=== PATIENT | female | born 1950 | race Caucasian/White ===

== ENCOUNTER → 2018-01-25 | Outpatient (CLI) | payer MEDICARE ==
[~2018-01-25] MED LIST: REGADENOSON 0.4 MG/5 ML SYRINGE IV ONE
--- NOTE | 2018-01-25 10:46 | NM ---
EXAMINATION TYPE: NM stress lexiscan cardiolite DATE OF EXAM: 01/25/2018 COMPARISON: NONE HISTORY: Chest pain, palpitations TECHNIQUE: After the intravenous administration of 10.22 mCi Tc 99m Sestamibi - Cardiolite resting S PECT images acquired 45 minutes post injection. The patient received 0.4mg Lexiscan, 25.5 mCi Tc 99m Sestamibi - Stress images obtained [address] injection FINDINGS: Review of stress and rest SPECT images demonstrates no distinct perfusion abnormality. Gated analysi s shows normal wall motion with an estimated left ventricular ejection fraction of 76 %. IMPRESSION: No scintigraphic evidence for pharmacologically induced reversible ischemia. Consider echocardiograph ic correlation for elevated ejection fraction.
--- NOTE | 2018-01-25 12:34 | ECHOF ---
Referral Reason:R07.89 chest pain R00.2palpations MEASUREMENTS -------- HEIGHT: 160.0 cm WEIGHT: 81.6 kg BP: 188/72 RVIDd: 2.8 cm (< 3.3) IVSd: 1.2 cm (0.6 - 1.1) LVIDd: 3.6 cm (3.9 - 5.3) LVPWd: 1.4 cm (0.6 - 1.1) IVSs: 1.6 cm LVIDs: 3.0 cm LVPWs: 1.5 cm Ao Diam: 3.1 cm (2.0 - 3.7) AV Cusp: 2.3 cm (1.5 - 2.6) LA Diam: 3.1 cm (2.7 - 3.8) MV EXCURSION: 16.659 mm (> 18.000) MV EF SLOPE: 71 mm/s (70 - 150) EPSS: 0.3 cm MV E Gerardo: 0.51 m/s MV DecT: 228 ms MV A Gerardo: 0.80 m/s MV E/A Ratio: 0.64 RAP: 5.00 mmHg RVSP: 16.77 mmHg FINDINGS -------- Sinus rhythm. This was a technically adequate study. The left ventricular size is normal. There is moderate concentric left ventricular hypertrophy. O verall left ventricular systolic function is low-normal with, an EF between 50 - 55 %. The right ventricle is normal in size. The left atrial size is normal. The right atrial size is normal. The aortic valve is trileaflet, and appears structurally normal. No aortic stenosis or regurgitation. Mild mitral regurgitation is present. Mild tricuspid regurgitation present. There is no evidence of pulmonary hypertension. The right v entricular systolic pressure, as measured by Doppler, is 16.77mmHg. There is no pulmonic regurgitation present. The aortic root size is normal. Echo free space represents a pericardial fat pad. CONCLUSIONS -------- 1. The left ventricular size is normal. 2. There is moderate concentric left ventricular hypertrophy. 3. Overall left ventricular systolic function is low-normal with, an EF between 50 - 55 %. 4. The right ventricle is normal in size. 5. The left atrial size is normal. 6. The right atrial size is normal. 7. The aortic valve is trileaflet, and appears structurally normal. No aortic stenosis or regurgitati on. 8. Mild mitral regurgitation is present. 9. Mild tricuspid regurgitation present. 10. There is no evidence of pulmonary hypertension. 11. The right ventricular systolic pressure, as measured by Doppler, is 16.77mmHg. 12. There is no pulmonic regurgitation present. 13. The aortic root size is normal. 14. Echo free space represents a pericardial fat pad. LOCKER ROOM SUPERVISOR: Malu Lee RDCS
--- NOTE | 2018-01-25 14:06 | EST ---
EXERCISE STRESS AGE: 67 SEX: F HT: 5'3" WT: 180 PROTOCOL: Lexiscan Cardiolite Stress Test HEART RATE REST: 86 BLOOD PRESSURE REST: 108/72 MAXIMUM HEART RATE ACHIEVED: 97 MAXIMUM BLOOD PRESSURE: 121/63 85% MPHR: 128 100% MPHR: 151 INDICATIONS: Chest pain and palpitations. CLINICAL INFORMATION: STRESS DATA: Pretesting physical examination showed a heart rate of 86, pressure is 108/72 mmHg. Baseline EKG showed sinus mechanism; 0.4 mg of Lexiscan was given over 15 seconds per protocol. Max heart rate was 97 beats per minute, maximum blood pressure was 121/63 mmHg. Clinically, the patient did not have any symptoms of chest pain or discomfort. The EKG did not show any significant ST or T-wave abnormalities concerning for ischemia. CONCLUSION: 1. Nondiagnostic electrocardiogram stress testing in response to Lexiscan. 2. Please follow up on the Cardiolite portion on a separate report from the Radiology Department. MMODL / IJN: [id number] /
== END | disposition home or self-care (01) ==
LOC: RADNMMAIN 07:34
PROVIDERS: ATTEND Family Medicine
DX: I08.1 Rheumatic disorders of both mitral and tricuspid valves (principal); R07.89 Other chest pain; Z88.2 Allergy status to sulfonamides; Z91.048 Other nonmedicinal substance allergy status
CPT/HCPCS: 93017; 93306; 78452; A9500; J2785

== ENCOUNTER 2018-02-02 11:24 | Day surgery (SDC) | payer MEDICARE ==
[2018-01-26 11:12] VITALS: BMI 31.4
[~2018-02-02 11:24] MED LIST changes: +LACTATED RINGERS 1,000 ML IV SCH; -REGADENOSON 0.4 MG/5 ML SYRINGE IV ONE
[2018-02-02 11:49] VITALS: TEMP 98.1
[2018-02-02] MEDS ORDERED: LACTATED RINGERS 1,000 ML IV ONE (11:49)
[2018-02-02] MEDS ORDERED: LIDOCAINE 1% 20 ML VIAL (10MG/ML) FOR IV START INTRADERMA ONE (11:49)
[2018-02-02] MEDS ORDERED: LIDOCAINE 1% INJ 10MG/ML (20 ML MDV) ONE (12:10)
[2018-02-02] MEDS ORDERED: PROPOFOL 10 MG/ML 20 ML VIAL IV ONE (12:10)
--- NOTE | 2018-02-02 12:14 | P.GSHP ---
History of Present Illness H&P Date: 02/02/18 Chief Complaint: Screening colonoscopy Is a 67-year-old female who presents today for screening colonoscopy. She denies a significant GI or last colonoscopy was 7 years ago. Past Medical History Past Medical History: Asthma, Hypertension, Seizure Disorder Additional Past Medical History / Comment(s): doesn't take meds for high BP, past hx. of seizures-last 6 yrs. ago-no further tx. for History of Any Multi-Drug Resistant Organisms: None Reported Past Surgical History: Cholecystectomy, Hernia Repair, Hysterectomy, Joint Replacement, Tonsillectomy, Tubal Ligation Additional Past Surgical History / Comment(s): brain surg. x2-cavernous angioma , gamma knife surg. for AVM, hernia repair x3, right knee replaced Past Anesthesia/Blood Transfusion Reactions: No Reported Reaction Smoking Status: Never smoker - Past Family History Mother Family Medical History: No Reported History Medications and Allergies Home Medications Medication Instructions Recorded Confirmed Type DULoxetine HCL [Cymbalta] 60 mg PO HS 01/26/18 01/26/18 History Glycopyrrolate [Robinul] 1 mg PO ONCE PRN 01/26/18 01/26/18 History Suvorexant [Belsomra] 10 mg PO HS PRN 01/26/18 01/26/18 History Ziprasidone [Geodon] 60 mg PO HS 01/26/18 01/26/18 History diphenhydrAMINE [Benadryl] 25 mg PO BID PRN 01/26/18 01/26/18 History Allergies Allergy/AdvReac Type Severity Reaction Status Date / Time Sulfa (Sulfonamide Allergy Rash/Hives Unverified 01/26/18 10:55 Antibiotics) Surgical - Exam Vital Signs Temp Pulse Resp BP Pulse Ox 98.1 F 113 H 18 159/86 94 L 02/02/18 11:48 02/02/18 11:48 02/02/18 11:48 02/02/18 11:48 02/02/18 11:48 - General well developed, no distress - Eyes PERRL - ENT normal pinna - Neck no masses - Respiratory normal expansion - Cardiovascular Rhythm: regular - Abdomen Abdomen: soft, non tender Assessment and Plan Assessment: Perform screening colonoscopy.
--- NOTE | 2018-02-02 12:28 | P.OP ---
Date of Procedure: 02/02/18 Preoperative Diagnosis: Screening colonoscopy Postoperative Diagnosis: Cecal polyp Procedure(s) Performed: Colonoscopy Anesthesia: MAC Surgeon: Rinku Ruiz Pathology: other (Cecal polyp) Condition: stable Disposition: PACU Description of Procedure: Patient's placed on the endoscopy table in the lateral position. She received IV sedation. Digital rectal exam was performed which revealed no ebonized. The flexible colonoscope was then placed patient anus and passed throughout the entire colon. The ileocecal valve was visualized. In the cecum there is a small sessile polyp was removed with a snare. The remainder of the ascending colon, transverse colon and descending colon appeared normal. The sigmoid colon and rectum appeared normal. Scope was withdrawn for patient.
[2018-02-02 12:36] VITALS: RESP 16
[2018-02-02 12:53] VITALS: BP 134/78; PULSE 80
== END 2018-02-02 13:00 | disposition home or self-care (01) ==
LOC: ORWHC2ENDO 11:24
PROVIDERS: ATTEND Surgery
DX: Z12.11 Encounter for screening for malignant neoplasm of colon (principal); D12.0 Benign neoplasm of cecum; J45.909 Unspecified asthma, uncomplicated; I10 Essential (primary) hypertension; G40.909 Epilepsy, unspecified, not intractable, without status epilepticus; Z79.899 Other long term (current) drug therapy; Z88.2 Allergy status to sulfonamides; Z90.49 Acquired absence of other specified parts of digestive tract; Z90.710 Acquired absence of both cervix and uterus; Z96.651 Presence of right artificial knee joint; Z98.51 Tubal ligation status
CPT/HCPCS: 88305; 45385; J2001; J2704

== ENCOUNTER → 2019-03-18 | Outpatient (CLI) | payer MEDICARE ==
--- NOTE | 2019-03-22 11:34 | MM ---
Reason for exam: screening (asymptomatic). Last mammogram was performed 4 years and 2 months ago. History: Patient is postmenopausal. Family history of breast cancer in 2 aunts. Physical Findings: A clinical breast exam by your physician is recommended on an annual basis and results should be correlated with mammographic findings. MG 3D Screening Mammo W/Cad Bilateral CC and MLO view(s) were taken. Prior study comparison: January 11, 2015, bilateral MG screening mammo w CAD. September 14, 2006, bilateral screening mammogram w/CAD. There are scattered fibroglandular densities. There is no discrete abnormality. No significant changes when compared with prior studies. ASSESSMENT: Negative, BI-RAD 1 RECOMMENDATION: Routine screening mammogram of both breasts in 1 year.
== END | disposition home or self-care (01) ==
LOC: RADMAMWWP 16:22
PROVIDERS: ATTEND Family Medicine
DX: Z12.31 Encounter for screening mammogram for malignant neoplasm of breast (principal)
CPT/HCPCS: 77063; 77067

== ENCOUNTER 2019-08-29 16:23 | Emergency (ER) | payer OTHER, MEDICARE ==
[2019-08-29 16:29] VITALS: RESP 18; TEMP 98.2
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
--- NOTE | 2019-08-29 17:38 | XR ---
EXAMINATION TYPE: XR chest 2V DATE OF EXAM: 08/29/2019 COMPARISON: NONE HISTORY: Chest pain TECHNIQUE: 2 views FINDINGS: Heart and mediastinum are normal. Lungs are clear. Diaphragm is normal. Bony thorax is inta ct. Pulmonary vascularity is normal. IMPRESSION: Normal chest.
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
[2019-08-29 17:58] LABS: Basophils # (A) 0.1 k/uL (0-0.2); Basophils % (A) 1 %; Eosinophils # (A) 0.3 k/uL (0-0.7); Eosinophils % (A) 3 %; HCT 46.2 % (34.0-46.0); HGB 14.9 gm/dL (11.4-16.0); Lymphocytes # (A) 2.9 k/uL (1.0-4.8); Lymphocytes % (A) 30 %; MCH 28.4 pg (25.0-35.0); MCHC 32.2 g/dL (31.0-37.0); MCV 88.1 fL (80.0-100.0); Mean Platelet Volume 6.3; Monocytes # (A) 0.5 k/uL (0-1.0); Monocytes % (A) 5 %; Neutrophils # (A) 5.7 k/uL (1.3-7.7); Neutrophils % (A) 60 %; Platelet Count 285 k/uL (150-450); RBC 5.24 m/uL (3.80-5.40); WBC 9.4 k/uL (3.8-10.6)
[2019-08-29 18:06] VITALS: BP 136/94; PULSE 81
[2019-08-29 18:06] LABS: Albumin 4.1 g/dL (3.5-5.0); Calcium 9.8 mg/dL (8.4-10.2); Potassium 4.2 mmol/L (3.5-5.1); Total Bilirubin 0.5 mg/dL (0.2-1.3); Total Protein 6.6 g/dL (6.3-8.2)
[2019-08-29 18:13] LABS: INR 0.9 (<1.2); Prothrombin Time 9.8 sec (9.0-12.0)
[2019-08-29 18:14] LABS: Partial Thromboplastin Time 21.1 sec (22.0-30.0)
[2019-08-29] MEDS ORDERED: ACET/COD 300 MG/30 MG STARTER PACK 6 TAB BTL PO STA (18:57)
== END 2019-08-29 19:00 | disposition home or self-care (01) ==
LOC: EC 16:23
DX: M51.35 Other intervertebral disc degeneration, thoracolumbar region (principal); F32.9 Major depressive disorder, single episode, unspecified; I10 Essential (primary) hypertension; Z79.899 Other long term (current) drug therapy; Z88.2 Allergy status to sulfonamides; V03.99XA Pedestrian with other conveyance injured in collision with car, pick-up truck or van, unspecified whether traffic or nontraffic accident, initial encounter; Y92.488 Other paved roadways as the place of occurrence of the external cause; Y93.01 Activity, walking, marching and hiking
CPT/HCPCS: 36415; 71046; 72128; 72131; 80053; 85025; 85610; 85730; 99284

== ENCOUNTER → 2019-09-26 | Outpatient (CLI) | payer MEDICARE ==
--- NOTE | 2019-09-27 07:25 | US ---
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 Patient states having a test that showed goiter TECHNIQUE: Multiple sonographic images of the thyroid gland are obtained. FINDINGS: GLAND SIZE: Right Lobe: 4.7 x 1.5 x 1.4 cm Overall Parenchyma: heterogenous Left Lobe: 8.9 x 6.0 x 3.9 cm Overall Parenchyma: heterogeneous Isthmus Thickness: 0.7 cm NODULES RIGHT: # of nodules measured on right: 1. 0.8 x 0.8 x 0.8 cm heterogeneous nodule at the mid pole with well-defined margins; present with c alcifications. This nodule shows intranodular vascularity. Prior size: No prior LEFT: # of nodules measured on left: 0 Goiter visualized in left lobe with cystic component = 3.7 x 2.8 x 2.3 cm ISTHMUS: # of nodules measured in the isthmus: 0 Bilateral neck scanned. Lymph node visualized in the right lateral neck = 1.4 x 0.6 x 0.6 cm, promine nt but nonenlarged by size criteria IMPRESSION: 1. Goitrous enlargement of the left lobe measuring up to 8.9 x 6.0 x 3.9 cm. There is a cystic compon ent within measuring up to 3.7 cm. Unable to identify a discrete nodule separate from the left lobe g landular parenchyma. Review of the patient's 08/29/[address] shows mass effect on the air way with rightward deviation. 2. Calcified 8 mm nodule at the right midpole.
== END | disposition home or self-care (01) ==
LOC: RADUSWWP 16:45
PROVIDERS: ATTEND Family Medicine
DX: E04.1 Nontoxic single thyroid nodule (principal); E04.9 Nontoxic goiter, unspecified
CPT/HCPCS: 76536

== ENCOUNTER 2019-10-13 12:36 | Emergency (ER) | payer MEDICARE ==
[2019-10-13 12:46] VITALS: BP 137/87; PULSE 91; RESP 20; TEMP 98.8
--- NOTE | 2019-10-13 13:06 | ED ---
General Adult HPI - General Chief complaint: Recheck/Abnormal Lab/Rx Stated complaint: Shortness of breath, abn EKG in office Time Seen by Provider: 10/13/19 12:58 Source: patient, RN notes reviewed, old records reviewed Mode of arrival: wheelchair Limitations: no limitations - History of Present Illness Initial comments: 69-year-old female presenting from her primary care physician's office with an abnormal EKG. She was seeing his physician for the first time, she had an EKG obtained secondary to 3 months of dyspnea. Patient states that she has not had any chest pain today or over the past 3 months. She has no known history of coronary artery disease. No history of DVT or PE. She denies cough. She denies lower extremity pain or swelling. She denies fever. No URI symptoms. Dyspnea has been constant and unchanged over the past 3 months. - Related Data Home Medications Medication Instructions Recorded Confirmed DULoxetine HCL [Cymbalta] 60 mg PO HS 01/26/18 01/26/18 Glycopyrrolate [Robinul] 1 mg PO ONCE PRN 01/26/18 01/26/18 Suvorexant [Belsomra] 10 mg PO HS PRN 01/26/18 01/26/18 Ziprasidone [Geodon] 60 mg PO HS 01/26/18 01/26/18 diphenhydrAMINE [Benadryl] 25 mg PO BID PRN 01/26/18 01/26/18 Allergies Allergy/AdvReac Type Severity Reaction Status Date / Time Sulfa (Sulfonamide Allergy Rash/Hives Verified 10/13/19 12:46 Antibiotics) Review of Systems ROS Statement: Those systems with pertinent positive or pertinent negative responses have been documented in the HPI. ROS Other: All systems not noted in ROS Statement are negative. Past Medical History Past Medical History: Asthma, Hypertension, Seizure Disorder Additional Past Medical History / Comment(s): doesn't take meds for high BP, past hx. of seizures-last 6 yrs. ago-no further tx. for History of Any Multi-Drug Resistant Organisms: None Reported Past Surgical History: Cholecystectomy, Hernia Repair, Hysterectomy, Joint Replacement, Tonsillectomy, Tubal Ligation Additional Past Surgical History / Comment(s): brain surg. x2-cavernous angioma, gamma knife surg. for AVM, hernia repair x3, right knee replaced Past Anesthesia/Blood Transfusion Reactions: No Reported Reaction Past Psychological History: Depression Smoking Status: Never smoker Past Alcohol Use History: None Reported Past Drug Use History: None Reported - Past Family History Mother Family Medical History: No Reported History General Exam Limitations: no limitations General appearance: alert, in no apparent distress Head exam: Present: atraumatic, normocephalic Eye exam: Present: normal appearance, PERRL ENT exam: Present: normal exam Neck exam: Present: normal inspection. Absent: tenderness, meningismus Respiratory exam: Present: normal lung sounds bilaterally. Absent: respiratory distress, wheezes, rales, rhonchi, stridor, decreased breath sounds Cardiovascular Exam: Present: regular rate, normal rhythm GI/Abdominal exam: Present: soft. Absent: distended, tenderness, guarding, rebound Extremities exam: Present: normal inspection, normal capillary refill. Absent: pedal edema, calf tenderness Neurological exam: Present: alert, oriented X3, CN II-XII intact. Absent: motor sensory deficit Psychiatric exam: Present: normal affect, normal mood Skin exam: Present: warm, dry, intact. Absent: cyanosis, diaphoretic Course Vital Signs 10/13/19 12:45 Temperature 98.8 F Pulse Rate 91 Respiratory 20 Rate Blood Pressure 137/87 O2 Sat by Pulse 97 Oximetry EKG Findings - EKG Comments: EKG Findings:: EKG: Normal sinus rhythm, T-wave abnormality in the lateral precordial leads, the V4,[address] segment elevation, rate of 86, WI in terval 148, QRS duration 74, QTC 380 Medical Decision Making - Medical Decision Making 69-year-old female presenting for dyspnea. This is been ongoing for weeks. She was seen by her primary care physician for the first time today and had an EKG with T-wave inversion this is consistent with EKG performed in the emergency department today. She has stable vitals, no chest pain. No lower extremity edema. Chest x-ray is clear with no focal pneumonia, no pulmonary edema, no pneumothorax, there is a soft tissue mass consistent with unknown later. Patient has an appointment later this month for evaluation of this goiter. She has a normal CBC with mildly elevated hemoglobin at 16. She has normal white blood cell count, normal electrolytes, she has a negative d-dimer, negative troponin. I did discuss case with Dr. Cha who had sent the patient. He will resume care of this patient on an outpatient basis. - Lab Data Result diagrams: 10/13/19 13:00 10/13/19 13:00 Lab Results 10/13/19 10/13/19 10/13/19 Range/Units 13:00 13:00 13:00 WBC 10.4 (3.8-10.6) k/uL RBC 5.66 H (3.80-5.40) m/uL Hgb 16.4 H (11.4-16.0) gm/dL Hct 50.7 H (34.0-46.0) % MCV 89.5 (80.0-100.0) fL MCH 29.0 (25.0-35.0) pg MCHC 32.4 (31.0-37.0) g/dL RDW 13.7 (11.5-15.5) % Plt Count 266 (150-450) k/uL Neutrophils % 62 % Lymphocytes % 30 % Monocytes % 4 % Eosinophils % 2 % Basophils % 1 % Neutrophils # 6.5 (1.3-7.7) k/uL Lymphocytes # 3.1 (1.0-4.8) k/uL Monocytes # 0.4 (0-1.0) k/uL Eosinophils # 0.2 (0-0.7) k/uL Basophils # 0.1 (0-0.2) k/uL PT 10.2 (9.0-12.0) sec INR 1.0 (<1.2) APTT 22.7 (22.0-30.0) sec D-Dimer 0.29 (<0.60) mg/L FEU Sodium 140 (137-145) mmol/L Potassium 5.2 H (3.5-5.1) mmol/L Chloride 108 H (98-107) mmol/L Carbon Dioxide 20 L (22-30) mmol/L Anion Gap 12 mmol/L BUN 12 (7-17) mg/dL Creatinine 0.84 (0.52-1.04) mg/dL Est GFR (CKD-EPI)AfAm 81 (>60 ml/min/1.73 sqM) Est GFR (CKD-EPI)NonAf 70 (>60 ml/min/1.73 sqM) Glucose 121 H (74-99) mg/dL Calcium 10.2 (8.4-10.2) mg/dL Magnesium 2.0 (1.6-2.3) mg/dL Total Bilirubin 0.6 (0.2-1.3) mg/dL AST 29 (14-36) U/L ALT 17 (4-34) U/L Alkaline Phosphatase 114 (38-126) U/L Troponin I (0.000-0.034) ng/mL NT-Pro-B Natriuret Pep pg/mL Total Protein 7.3 (6.3-8.2) g/dL Albumin 4.7 (3.5-5.0) g/dL 10/13/19 10/13/19 Range/Units 13:00 13:00 WBC (3.8-10.6) k/uL RBC (3.80-5.40) m/uL Hgb (11.4-16.0) gm/dL Hct (34.0-46.0) % MCV (80.0-100.0) fL MCH (25.0-35.0) pg MCHC (31.0-37.0) g/dL RDW (11.5-15.5) % Plt Count (150-450) k/uL Neutrophils % % Lymphocytes % % Monocytes % % Eosinophils % % Basophils % % Neutrophils # (1.3-7.7) k/uL Lymphocytes # (1.0-4.8) k/uL Monocytes # (0-1.0) k/uL Eosinophils # (0-0.7) k/uL Basophils # (0-0.2) k/uL PT (9.0-12.0) sec INR (<1.2) APTT (22.0-30.0) sec D-Dimer (<0.60) mg/L FEU Sodium (137-145) mmol/L Potassium (3.5-5.1) mmol/L Chloride (98-107) mmol/L Carbon Dioxide (22-30) mmol/L Anion Gap mmol/L BUN (7-17) mg/dL Creatinine (0.52-1.04) mg/dL Est GFR (CKD-EPI)AfAm (>60 ml/min/1.73 sqM) Est GFR (CKD-EPI)NonAf (>60 ml/min/1.73 sqM) Glucose (74-99) mg/dL Calcium (8.4-10.2) mg/dL Magnesium (1.6-2.3) mg/dL Total Bilirubin (0.2-1.3) mg/dL AST (14-36) U/L ALT (4-34) U/L Alkaline Phosphatase (38-126) U/L Troponin I <0.012 (0.000-0.034) ng/mL NT-Pro-B Natriuret Pep 51 pg/mL Total Protein (6.3-8.2) g/dL Albumin (3.5-5.0) g/dL Disposition Clinical Impression: Dyspnea Disposition: HOME SELF-CARE Condition: Good Instructions (If sedation given, give patient instructions): Dyspnea (ED) Is patient prescribed a controlled substance at d/c from ED?: No Referrals: Hiram Cha [Primary Care Provider] - 1-2 days Time of Disposition: 14:35
[2019-10-13 13:21] LABS: Albumin 4.7 g/dL (3.5-5.0); Calcium 10.2 mg/dL (8.4-10.2); Total Bilirubin 0.6 mg/dL (0.2-1.3); Total Protein 7.3 g/dL (6.3-8.2)
--- NOTE | 2019-10-13 13:22 | XR ---
EXAMINATION TYPE: XR chest 2V DATE OF EXAM: 10/13/2019 COMPARISON: 08/29/2019 TECHNIQUE: PA and lateral views submitted. HISTORY: abnormal EKG FINDINGS: The lungs are clear and there is no pneumothorax, pleural effusion, or focal pneumonia. Soft tissue prominence in the upper mediastinum noted with a surgical clips overlying the left paratracheal latrell on and deviation of the airway. Heart size normal. IMPRESSION: 1. Upper mediastinal soft tissue mass most likely related to the thyroid. Previous ultrasound demonst rated the left lobe of thyroid measures nearly 9 cm. Correlate clinically.
[2019-10-13 13:25] LABS: Potassium 5.2 mmol/L (3.5-5.1)
[2019-10-13 13:27] LABS: Basophils # (A) 0.1 k/uL (0-0.2); Basophils % (A) 1 %; Eosinophils # (A) 0.2 k/uL (0-0.7); Eosinophils % (A) 2 %; HCT 50.7 % (34.0-46.0); HGB 16.4 gm/dL (11.4-16.0); Lymphocytes # (A) 3.1 k/uL (1.0-4.8); Lymphocytes % (A) 30 %; MCHC 32.4 g/dL (31.0-37.0); MCV 89.5 fL (80.0-100.0); Mean Platelet Volume 6.9; Monocytes # (A) 0.4 k/uL (0-1.0); Monocytes % (A) 4 %; Neutrophils # (A) 6.5 k/uL (1.3-7.7); Neutrophils % (A) 62 %; Platelet Count 266 k/uL (150-450); RBC 5.66 m/uL (3.80-5.40); RDW 13.7 % (11.5-15.5); WBC 10.4 k/uL (3.8-10.6)
[2019-10-13 13:34] LABS: D-Dimer 0.29 mg/L FEU (<0.60); Partial Thromboplastin Time 22.7 sec (22.0-30.0); Prothrombin Time 10.2 sec (9.0-12.0)
== END 2019-10-13 14:42 | disposition home or self-care (01) ==
LOC: EC 12:36
DX: R06.00 Dyspnea, unspecified (principal); R94.31 Abnormal electrocardiogram [ECG] [EKG]; F32.9 Major depressive disorder, single episode, unspecified; I10 Essential (primary) hypertension; J45.909 Unspecified asthma, uncomplicated; Z79.51 Long term (current) use of inhaled steroids; Z88.2 Allergy status to sulfonamides; Z79.899 Other long term (current) drug therapy; Z96.651 Presence of right artificial knee joint
CPT/HCPCS: 36415; 71046; 80053; 83735; 83880; 84484; 85025; 85379; 85610; 85730; 93005; 99285

== ENCOUNTER → 2019-10-28 | Outpatient (CLI) | payer MEDICARE ==
--- NOTE | 2019-10-28 20:33 | ECHOS ---
STRESS ECHOCARDIOGRAM PROCEDURE PERFORMED: Stress echocardiogram DATE OF SERVICE: October 27, 2019. INDICATION: Chest pain. STRESS DATA: Heart rate 108, pressure is 146/86 mmHg. Baseline EKG showed sinus mechanism. The patient exercised on the treadmill according to Andry protocol for a total of 3 minutes and achieved 4.4 METS. Max heart rate was 154 which is about 100% of maximum predicted heart rate. Maximum blood pressure was 170/88 mmHg. Clinically the patient did not have any symptoms of chest pain or chest discomfort and the EKG did not show any significant ST or T-wave abnormalities concerning for ischemia. Analysis and echocardiogram images from parasternal long axis view, parasternal short axis view, apical 4 chamber and apical 2 chamber were obtained as the baseline images at the peak of the heart rate as well as on recovery and the echocardiogram images showed good augmentation and left ventricular systolic function. CONCLUSION: 1. Poor exercise tolerance. 2. Normal EKG in response to exercise. 3. Normal echocardiogram in response to exercise. MMODL / IJN: [id number] /
== END | disposition home or self-care (01) ==
LOC: RADNMMAIN 09:48
PROVIDERS: ATTEND Family Medicine
DX: R07.89 Other chest pain (principal)
CPT/HCPCS: 93351

== ENCOUNTER → 2019-12-27 | Outpatient (CLI) | payer MEDICARE ==
[2019-12-27 20:06] LABS: African American GFR (CKD) 65.6 (60.0-200.0); Non-African American GFR(CKD) 56.6 (60.0-200.0)
== END | disposition home or self-care (01) ==
LOC: LABWHC1 10:30
PROVIDERS: ATTEND Internal Medicine Endocrinology, Diabetes & Metabolism
DX: E07.9 Disorder of thyroid, unspecified (principal); E04.2 Nontoxic multinodular goiter
CPT/HCPCS: 36415; 82565; 84520

== ENCOUNTER → 2019-12-28 | Outpatient (CLI) | payer MEDICARE ==
--- NOTE | 2019-12-28 09:29 | CT ---
EXAMINATION TYPE: CT soft tissue neck w con DATE OF EXAM: 12/28/2019 HISTORY: Thyroid mass and difficulty breathing. COMPARISON: Thyroid ultrasound September 26, [address] thoracic spine August 29, 2019 CT DLP: 444.1 mGycm. Automated Exposure Control for Dose Reduction was Utilized. TECHNIQUE: CT scan of the neck is performed with IV Contrast, patient injected with 100 mL of Isovue 300, axial images are obtained, coronal and sagittal reformatted images are reviewed. FINDINGS: Airway: Persistent heterogeneous markedly enlarged left thyroid lobe with substernal extension has lo w density irregular central component and measures roughly 8.2 cm long axis coronal image 33. Extensi on into Isthmus felt present. There is mass effect with right-sided tracheal deviation redemonstrated . Mass effect with right proximal esophageal deviation also noted. Right thyroid lobe is small to nor mal in size with subcentimeter calcification and tiny hypodense nodules Parotid/submandibular glands: No gross abnormality seen. Carotid/Vascular Structures: No significant abnormality is seen Osseous Structures: Postsurgical changes C6/C7 disc space level with satisfactory alignment . Scoliot ic curvature on coronal images. Other: Nasal septum deviated to right of midline. No definitive suspicious greater than 1 cm neck bacilio nopathy. IMPRESSION: Markedly enlarged left thyroid lobe with substernal extension felt to be related to domin ant mixed nodule. Neoplasm not excluded. Consider sampling and/or surgical referral due to large size and mass effect.
== END | disposition home or self-care (01) ==
LOC: RADCTMAIN 07:49
PROVIDERS: ATTEND Internal Medicine Endocrinology, Diabetes & Metabolism
DX: E04.9 Nontoxic goiter, unspecified (principal); E04.2 Nontoxic multinodular goiter; E07.9 Disorder of thyroid, unspecified
CPT/HCPCS: 70491; Q9967

== ENCOUNTER → 2020-06-22 | Outpatient (CLI) | payer MEDICARE ==
--- NOTE | 2020-06-22 16:30 | US ---
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 Left thyroidectomy Jan 2020 , patient on thyroid meds TECHNIQUE: Multiple sonographic images of the thyroid gland are obtained. FINDINGS: GLAND SIZE: Right Lobe: 3.4 x 1.4 x 1.8 cm Overall Parenchyma: heterogenous Left Lobe: Surgically absent Isthmus Thickness: Surgically absent NODULES RIGHT: # of nodules measured on right: multiple subcentimeter areas, measured largest nodule 1. 0.6 X 0.5 x 0.6 cm, calcified nodule, which is taller than wide, with smooth margins, with echog enic foci. Prior size: 0.8 x 0.8 x 0.8 cm LEFT: # of nodules measured on left: surgically absent ISTHMUS: # of nodules measured in the isthmus: surgically absent Hospitalist Nocturnist Physician notes: Bilateral neck scanned, no evidence of lymphadenopathy. IMPRESSION: 1. Multiple subcentimeter nodules in the right lobe, largest measures 6 mm and is calcified and not s ignificantly changed. 2. Status post left thyroidectomy.
== END | disposition home or self-care (01) ==
LOC: RADUSWWP 14:57
PROVIDERS: ATTEND Internal Medicine Endocrinology, Diabetes & Metabolism
DX: E04.2 Nontoxic multinodular goiter (principal); E89.0 Postprocedural hypothyroidism
CPT/HCPCS: 76536

== ENCOUNTER 2022-12-11 08:26 | Day surgery (SDC) | payer MEDICARE, OTHER ==
[~2022-12-11 08:26] MED LIST changes: +LIDOCAINE 1% (10MG/ML) FOR IV START INTRADERMA PRN; +ONDANSETRON 4 MG/2 ML VIAL IVP PRN
[2022-12-11 09:06] VITALS: TEMP 97
[2022-12-11] MEDS ORDERED: LIDOCAINE 2% INJ 20 MG/ML (2 ML VIAL) ONE (09:11)
[2022-12-11] MEDS ORDERED: PROPOFOL 10 MG/ML 20 ML VIAL IV ONE (09:11)
--- NOTE | 2022-12-11 09:21 | P.GSHP ---
History of Present Illness H&P Date: 12/11/22 Chief Complaint: colon polyp This is a 72-year-old female who presents today for colonoscopy. Patient has a previous history of colon polyps. polyps. Past Medical History Past Medical History: Hypertension, Seizure Disorder Additional Past Medical History / Comment(s): doesn't take meds for high BP, past hx. of seizures-last 6 yrs. ago-no further tx. for History of Any Multi-Drug Resistant Organisms: None Reported Past Surgical History: Cholecystectomy, Hernia Repair, Hysterectomy, Joint Replacement, Tonsillectomy, Tubal Ligation Additional Past Surgical History / Comment(s): brain surg. x2-cavernous angioma, gamma knife surg. for AVM, hernia repair x3, right knee replaced Past Anesthesia/Blood Transfusion Reactions: No Reported Reaction Past Psychological History: Depression Smoking Status: Never smoker Past Alcohol Use History: None Reported Past Drug Use History: None Reported - Past Family History Mother Family Medical History: No Reported History Medications and Allergies Home Medications Medication Instructions Recorded Confirmed Type Multivitamins, Thera [Multivitamin 1 tab PO DAILY 12/08/22 12/08/22 History (formulary)] Allergies Allergy/AdvReac Type Severity Reaction Status Date / Time Sulfa (Sulfonamide Allergy Rash/Hives Verified 12/11/22 08:50 Antibiotics) adhesive AdvReac Rash/Hives Verified 12/11/22 08:50 Surgical - Exam Vital Signs Temp Pulse Resp BP Pulse Ox 97.0 F L 93 16 138/87 97 12/11/22 08:53 12/11/22 08:53 12/11/22 08:53 12/11/22 08:53 12/11/22 08:53 - General well developed, well nourished, no distress - Eyes PERRL - ENT normal pinna - Neck no masses - Respiratory normal expansion - Cardiovascular Rhythm: regular - Abdomen Abdomen: soft, non tender Assessment and Plan Assessment: History of colon polyps. We'll perform colonoscopy.
--- NOTE | 2022-12-11 09:43 | P.OP ---
Date of Procedure: 12/11/22 Preoperative Diagnosis: History of colon polyps Postoperative Diagnosis: Mild diverticulosis Procedure(s) Performed: Colonoscopy Anesthesia: MAC Surgeon: Rinku Ruiz Pathology: none sent Condition: stable Disposition: PACU Description of Procedure: The patient's placed on the endoscopy table in the lateral position. She received IV sedation. Digital rectal exam was performed. This revealed no abnormalities. Flexible colonoscope was then placed patient anus and passed throughout the entire colon. The ileocecal valve was visualized. Cecum, ascending and transverse colon in the descending; was mild diverticular changes. Scope was then brought back the rectum this appeared normal. Scope withdrawn for patient.
[2022-12-11 10:30] VITALS: BP 165/80; PULSE 78; RESP 20
== END 2022-12-11 10:32 | disposition home or self-care (01) ==
LOC: ORWHC2ENDO 08:26
PROVIDERS: ATTEND Surgery
DX: Z12.11 Encounter for screening for malignant neoplasm of colon (principal); K57.30 Diverticulosis of large intestine without perforation or abscess without bleeding; G40.909 Epilepsy, unspecified, not intractable, without status epilepticus; I10 Essential (primary) hypertension; F32.A Depression, unspecified; Z88.2 Allergy status to sulfonamides; Z90.49 Acquired absence of other specified parts of digestive tract; Z88.8 Allergy status to other drugs, medicaments and biological substances; Z86.010 Personal history of colon polyps; Z79.899 Other long term (current) drug therapy; Z90.710 Acquired absence of both cervix and uterus
CPT/HCPCS: J2704; J2001; G0121

== ENCOUNTER → 2023-01-22 | Outpatient (CLI) | payer MEDICARE ==
--- NOTE | 2023-01-25 16:35 | MM ---
Reason for Exam: Screening (asymptomatic). Last mammogram was performed 3 year(s) and 10 month(s) ago. Patient History: Menarche at age 10. First Full-Term at age 27. Left ovary removed at age 44. Right ovary removed at age 35. Hysterectomy at age 35. Postmenopausal. Maternal aunt had breast cancer. Maternal aunt had breast cancer. Risk Values: Jasmin 5 year model risk: 2.0%. NCI Lifetime model risk: 4.5%. Prior Study Comparison: 09/14/2006 Bilateral Screening Mammogram, [facility]. 01/11/2015 Bilateral Screening Mammogram, [facility]. 03/18/2019 Bilateral Screening Mammogram, [facility]. Tissue Density: There are scattered fibroglandular densities. Findings: Analyzed By CAD. There is no suspicious group of microcalcifications or new suspicious mass in either breast. Overall Assessment: Negative, BI-RAD 1 Management: Screening Mammogram of both breasts in 1 year. . Patient should continue monthly self-breast exams. A clinical breast exam by your physician is recommended on an annual basis. This exam should not preclude additional follow-up of suspicious palpable abnormalities. Note on Jasmin scores and lifetime risk: 1. A Jasmin score greater than 3% is considered moderate risk. If this is the case, consider specialist referral to assess eligibility for a risk reducing agent. 2. If overall lifetime risk for the development of breast cancer is 20% or higher, the patient may qualify for future screening with alternating mammogram and breast MRI. Electronically signed and approved by: Nelia Carrasquillo M.D. Radiologist
== END | disposition home or self-care (01) ==
LOC: RADMAMWWP 13:26
PROVIDERS: ATTEND Family Medicine
DX: Z12.31 Encounter for screening mammogram for malignant neoplasm of breast (principal); Z78.0 Asymptomatic menopausal state; Z80.3 Family history of malignant neoplasm of breast
CPT/HCPCS: 77063; 77067

== ENCOUNTER → 2023-03-27 | Outpatient (CLI) | payer MEDICARE, OTHER ==
[2023-03-27 15:23] LABS: Basophils # (A) 0.04 X 10*3/uL (0.00-0.10); Basophils % (A) 0.4 %; Eosinophils # (A) 0.23 X 10*3/uL (0.04-0.35); Eosinophils % (A) 2.4 %; HCT 42.5 % (37.2-46.3); HGB 13.8 g/dL (12.0-15.0); Lymphocytes # (A) 2.97 X 10*3/uL (0.90-5.00); Lymphocytes % (A) 31.2 %; MCH 29.4 pg (27.0-32.0); MCHC 32.5 g/dL (32.0-37.0); MCV 90.4 FL (80.0-97.0); Mean Platelet Volume 9.6 FL (9.5-12.2); Monocytes # (A) 0.46 X 10*3/uL (0.20-1.00); Monocytes % (A) 4.8 %; NRBC Per 100 WBC 0 X 10*3/uL (0.00-0.01); Neutrophils # (A) 5.78 X 10*3/uL (1.80-7.70); Neutrophils % (A) 60.9 %; Platelet Count 168 X 10*3/uL (140-440); RDW 14.2 % (11.5-14.5); WBC 9.51 X 10*3/uL (4.50-10.00)
[2023-03-27 16:36] LABS: ALT 17 U/L (8-44); AST 15 U/L (13-35); Albumin 4.4 g/dL (3.8-4.9); Albumin/Globulin Ratio 1.83 Ratio (1.60-3.17); Alkaline Phosphatase 87 U/L (41-126); Blood Urea Nitrogen 14.7 mg/dL (9.0-27.0); Calcium 9.4 mg/dL (8.7-10.3); Carbon Dioxide 20.9 mmol/L (21.6-31.8); Chloride 107 mmol/L (96-109); Chol/HDL Ratio 5.03 Ratio; Globulin 2.4 g/dL (1.6-3.3); Glucose 179 mg/dL (70-110); LDL Cholesterol,Calculated 84.8 mg/dL (0.0-131.0); Sodium 145 mmol/L (135-145); Total Bilirubin <0.2 mg/dL (0.3-1.2); Total Protein 6.8 g/dL (6.2-8.2)
== END | disposition home or self-care (01) ==
LOC: LABWHC1 10:12
PROVIDERS: ATTEND Family Medicine
DX: N18.31 Chronic kidney disease, stage 3a (principal)
CPT/HCPCS: 36415; 80053; 80061; 82306; 84439; 84443; 85025

== ENCOUNTER → 2023-04-03 | Outpatient (CLI) | payer MEDICARE, OTHER ==
[2023-04-03 18:34] LABS: HCT 39.7 % (37.2-46.3); HGB 12.9 g/dL (12.0-15.0); MCHC 32.5 g/dL (32.0-37.0); MCV 89.2 FL (80.0-97.0); Mean Platelet Volume 9.4 FL (9.5-12.2); NRBC Per 100 WBC 0 X 10*3/uL (0.00-0.01); Platelet Count 151 X 10*3/uL (140-440); RBC 4.45 X 10*6/uL (4.10-5.20); RDW 13.6 % (11.5-14.5); WBC 9.19 X 10*3/uL (4.50-10.00)
[2023-04-03 18:35] LABS: Basophils # (A) 0.03 X 10*3/uL (0.00-0.10); Basophils % (A) 0.3 %; Eosinophils # (A) 0.12 X 10*3/uL (0.04-0.35); Eosinophils % (A) 1.3 %; Lymphocytes # (A) 2.33 X 10*3/uL (0.90-5.00); Lymphocytes % (A) 25.4 %; Monocytes # (A) 0.42 X 10*3/uL (0.20-1.00); Monocytes % (A) 4.6 %; Neutrophils # (A) 6.27 X 10*3/uL (1.80-7.70); Neutrophils % (A) 68.2 %
[2023-04-03 18:51] LABS: BUN/Creat Ratio 24.57 Ratio (12.00-20.00); Blood Urea Nitrogen 17.2 mg/dL (9.0-27.0); Calcium 8.7 mg/dL (8.7-10.3); Carbon Dioxide 24.1 mmol/L (21.6-31.8); Chloride 102 mmol/L (96-109); Glucose 142 mg/dL (70-110); Potassium 3.7 mmol/L (3.5-5.5); Sodium 139 mmol/L (135-145)
[2023-04-03 20:21] LABS: INR 0.99 sec (0.93-1.11); Prothrombin Time 10.7 sec (9.9-11.9)
== END | disposition home or self-care (01) ==
LOC: LABWHC1 13:15
PROVIDERS: ATTEND Family Medicine
DX: I10 Essential (primary) hypertension (principal); R73.9 Hyperglycemia, unspecified
CPT/HCPCS: 36415; 80048; 83036; 85025; 85610

== ENCOUNTER 2023-04-10 14:58 | Emergency (ER) | payer OTHER, MEDICARE ==
[2023-04-10] MEDS ORDERED: LIDOCAINE 4% PATCH TOPICAL ONE (15:16)
[2023-04-10] MEDS ORDERED: ACETAMINOPHEN TAB 500 MG TAB PO STA (15:16)
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
[2023-04-10 15:36] VITALS: TEMP 98.5
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
[2023-04-10 17:26] VITALS: BP 139/74; PULSE 84; RESP 18
== END 2023-04-10 17:13 | disposition home or self-care (01) ==
LOC: EC 14:58
DX: M48.02 Spinal stenosis, cervical region (principal); M85.80 Other specified disorders of bone density and structure, unspecified site; I10 Essential (primary) hypertension; Z88.2 Allergy status to sulfonamides; Z91.09 Other allergy status, other than to drugs and biological substances; Z88.5 Allergy status to narcotic agent; Z86.59 Personal history of other mental and behavioral disorders; V89.2XXA Person injured in unspecified motor-vehicle accident, traffic, initial encounter; Y92.411 Interstate highway as the place of occurrence of the external cause
CPT/HCPCS: 70450; 72070; 72125; 99285

== ENCOUNTER → 2023-04-21 | Outpatient (CLI) | payer MEDICARE | END | disposition home or self-care (01) | LOC: LABPAT 16:03 | PROVIDERS: ATTEND Orthopaedic Surgery | DX: Z53.9 Procedure and treatment not carried out, unspecified reason (principal) | CPT/HCPCS: 86850; 86900; 86901; 87070 ==

== ENCOUNTER 2023-04-27 08:12 | Day surgery (SDC) | payer MEDICARE, OTHER ==
--- NOTE | 2023-04-27 07:42 | HP ---
HISTORY AND PHYSICAL DATE OF SURGERY: 04/27/2023 HISTORY OF PRESENT ILLNESS: Malena Eisenberg is a 72-year-old patient seen with symptomatic right hip osteoarthritis. We discussed options regarding treatment. She elected to proceed with a right total hip arthroplasty via direct anterior approach. Consent was obtained. Medical clearance was provided by Dr. Mckinney's office. PAST MEDICAL HISTORY: Noncontributory. PAST SURGICAL HISTORY: Knee arthroplasty, spine surgery, cholecystectomy, tonsillectomy. DAILY MEDICATIONS: Motrin. ALLERGIES: Codeine and sulfa. SOCIAL HISTORY: She denies tobacco use. PHYSICAL EVALUATION OF THE RIGHT HIP: She has very limited range of motion with severe pain, diffuse tenderness about the hip, girdle straight. Positive impingement sign. Straight-leg raise is negative. Her distal neurovascular exam is intact. IMAGING STUDIES: Radiographs of the right hip reveal severe osteoarthritic changes. IMPRESSION: Right hip osteoarthritis. PLAN: Direct anterior right total hip arthroplasty. MMODL / IJN: [id number] /
[~2023-04-27 08:12] MED LIST changes: -LACTATED RINGERS 1,000 ML IV SCH; -LIDOCAINE 1% (10MG/ML) FOR IV START INTRADERMA PRN; -ONDANSETRON 4 MG/2 ML VIAL IVP PRN; +TRANEXAMIC 1,000 MG/100ML-NACL 1,000 MG in SALINE 1 100ML.BAG IVPB PRN
[2023-04-27] MEDS: LACTATED RINGERS 1,000 ML IV SCH ×2 (09:10→15:45)
[2023-04-27] MEDS: DEXAMETHASONE SOD PHOSPHATE 4 MG/ML 1 ML VIAL IV ONE (09:51)
[2023-04-27] MEDS: ACETAMINOPHEN TAB 500 MG TAB PO PRN (09:51)
[2023-04-27] MEDS: MELOXICAM 7.5 MG TAB PO PRN (09:52)
[2023-04-27] MEDS: ONDANSETRON 4 MG/2 ML VIAL IVP ONE (09:52)
[2023-04-27] MEDS: fentaNYL (PF) 50 MCG/ML 2 ML AMP IVP ONE (09:53)
[2023-04-27] MEDS: MIDAZOLAM 2 MG/2 ML VIAL IVP ONE (09:53)
[2023-04-27 09:54] LABS: Glucose,Whole Blood 132 mg/dL (70-110)
--- NOTE | 2023-04-27 10:04 | P.ANPRN ---
Procedure Note - Anesthesia - Nerve Block Performed Right Mateus Single Time Out Performed: Yes Date of Procedure: 04/27/23 Procedure Start Time: 09:53 Procedure Stop Time: 09:59 Location of Patient: PreOp Indication: Acute Post-Operative Pain, Requested by Surgeon Sedation Type: Sedate with meaningful contact maintained Preparation: Sterile Prep Position: Supine Needle Types: Pajunk Needle Gauge: 21 Ultrasound used to visualize needle placement: No Ultrasound used to observe medication spread: No Injectate: 0.5% Ropivacaine (see comment for volume) (Ropivacaine 0.5% 20 ml + 10 ml NS + 4 mg Dexamethasone) Blood Aspirated: No Pain Paresthesia on Injection Noted: No Resistance on Injection: Normal Image Stored and Saved: Yes Events: Uneventful and Well Tolerated
[2023-04-27] MEDS ORDERED: TRANEXAMIC 1,000 MG/100ML-NACL PREMIX BAG ONE (10:17)
[2023-04-27] MEDS ORDERED: MIDAZOLAM 2 MG/2 ML VIAL ONE (10:17)
[2023-04-27] MEDS ORDERED: PROPOFOL 10 MG/ML 20 ML VIAL IV ONE (10:17)
[2023-04-27] MEDS ORDERED: ROPIVACAINE 5 MG/ML 30 ML VIAL ONE (10:17)
[2023-04-27] MEDS ORDERED: ePHEDrine 50 MG/ML 1 ML VIAL ONE (10:17)
[2023-04-27] MEDS ORDERED: PHENYLEPHRINE 10 MG/ML VIAL ONE (10:17)
[2023-04-27] MEDS ORDERED: SODIUM CHLORIDE 0.9% (PF) 10 ML VIAL ONE (10:17)
[2023-04-27] MEDS: ceFAZolin 1,000 MG in SODIUM CHLORIDE 0.9% 1,000 ML IRRIGATION ONE (10:51)
[2023-04-27] MEDS: LACTATED RINGERS 1,000 ML IV ONE (11:29)
[2023-04-27] MEDS ORDERED: NALOXONE 0.4 MG/ML 1 ML VIAL IV PRN (11:51)
[2023-04-27] MEDS ORDERED: HYDROmorphone 0.5 MG/0.5 ML SYRINGE IVP PRN ×2 (11:51)
[2023-04-27] MEDS ORDERED: ONDANSETRON 4 MG/2 ML VIAL IVP PRN (11:51)
--- NOTE | 2023-04-27 11:51 | P.OP ---
Date of Procedure: 04/27/23 Preoperative Diagnosis: Right hip osteoarthritis Postoperative Diagnosis: Right hip osteoarthritis Procedure(s) Performed: Direct anterior right total hip arthroplasty Implants: 1. DePuy Corail 125 degree standard collared size 12 press-fit femoral stem 2. DePuy Plum Branch 52 mm press-fit acetabular shell 3. DePuy Plum Branch neutral polyethylene acetabular liner 36 mm ID 52 mm OD 4. Biolox delta ceramic femoral head +1.5 36 mm Anesthesia: local (Erector spinae block), spinal Surgeon: Dameon Perez Liquor Rectifier #1: Lucio Brambila Estimated Blood Loss (ml): 75 Pathology: none sent Condition: stable Disposition: PACU Indications for Procedure: 72-year-old patient seen with symptomatic right hip osteoarthritis. After having treatment options discussed, she elected to proceed with direct anterior right total hip arthroplasty. Operative Findings: See description of procedure Description of Procedure: The patient was taken to the operative suite. Patient underwent a spinal anesthetic by the department of anesthesia. Patient was then transferred to the Pratt table. Patient was given preoperative IV antibiotics and TXA. Both lower extremities were placed in standard leg spars. The hip was then prepped and draped in the normal sterile orthopedic fashion. A standard anterior incision was made beginning 3 cm lateral and 1 cm distal to the ASIS extending 10 cm. Dissection was then carried down through the subcutaneous soft tissues down to the fascia overlying the tensor fascia barrett. An incision was now made through the fascia. Careful dissection was taken down exposing the tensor fascia barrett muscle. A Cobra retractor was now placed along the medial femoral neck and a second one along the lateral femoral neck. The venous circumflex vessels were now identified, cauterized and clipped. We identified the anterior hip capsule. An incision was made through the hip capsule along the lateral border. I performed a partial anterior capsulectomy. Retractors were now placed around the femoral neck itself. A femoral neck cut was now made with a sagittal saw. It was completed with an osteotome at the lateral neck area. The femoral head was now removed without difficulty. The extremity was now rotated to 60 of external rotation. It was locked in position. Residual labrum was now debrided out. Serial reaming was performed of the acetabulum while Victoriano MEJIA assisted holding an anterior retractor for exposure. Once we reached the appropriate size and a trial was position and fit nicely. The appropriate size was now chosen opened and made available. It was introduced into the acetabulum without difficulty. The C-arm/fluoroscopy was now brought into the operative field. We made sure we had a true AP pelvic view. We now under direct C- arm/fluoroscopy introduced into the acetabular component with appropriate version and inclination. I held the cup in appropriate position while Victoriano MEJIA used a mallet to seat the acetabular component. I noted the component now to be well seated and stable. Acetabular cup introduce her was removed. The C-arm was pulled back. An appropriate liner was introduced and clicked into position. It was felt to be stable. At this point retractors were removed. The extremity was now placed into 140 external rotation with no traction. The leg was now dropped to the ground and adducted. Appropriate retractors were now positioned along the proximal femur. We also placed our femoral look into position. Additional capsular releasing was performed to gain access to the proximal femur. We now used a box osteotome. A canal finder was now utilized. Serial broaching was now performed with the assistance of Victoriano MEJIA tapping the broaches down with a mallet while held the broach in appropriate rotation and position. This was done until we reached the appropriate size with good overall rotational stability. Appropriate calcar planing was performed. A trial head/neck was placed into position. The hip was now reduced. The C- arm/fluoroscopy was brought back into the operative field. I obtained an AP pelvis which demonstrated adequate ligamentous alignment. The trial components appeared adequately sized and position. The C-arm/fluoroscopy was pulled back. Retractors were repositioned and the hip was dislocated. The leg was again taken down to the ground and adducted. Appropriate retractors were repositioned as well as the femoral hook. All trial components were removed. The femoral implant was opened along with the femoral head. The femoral implant was introduced on the appropriate handle into our pre-broached area. I held the component position well Victoriano MEJIA used a mallet to seat the femoral component. The femoral component was now noted to be well seated and stable.. The femoral head was introduced with good positioning and fixation noted. Retractors were now removed. The hip was now reduced. There appeared be good positioning of the hip confirmed on intraoperative fluoroscopy. Spot films were obtained to document this. A second gram of TXA was given. Bipolar cautery had been utilized intermittently through the procedure for hemostasis. The wound was irrigated copiously with pulse lavage mechanical irrigation. The fascia was repaired with Vicryl suture. The subcutaneous soft tissues were repaired in layers with Vicryl suture. The skin was approximated with pernio/Dermabond. Sterile dressings were applied. Patient was then awakened, transferred to a bed and taken to recovery in stable condition. Victoriano MEJIA assisted with the complex procedure.
--- NOTE | 2023-04-27 11:54 | XR ---
EXAMINATION TYPE: XR Hip Limited RT DATE OF EXAM: 04/27/2023 COMPARISON: NONE HISTORY: Pain TECHNIQUE: One view submitted. FINDINGS: There is postsurgical change compatible hip replacement surgery. IMPRESSION: 1. Postoperative change.
--- NOTE | 2023-04-27 11:55 | FL ---
EXAMINATION TYPE: FL guidance operating room DATE OF EXAM: 04/27/2023 HISTORY: Fluoroscopy time Total dose area product (DAP) in uGy*m?, mGy*cm? (or similar): 1.1867 IMPRESSION: 1. Fluoroscopy time.
[2023-04-27 12:31] LABS: Glucose,Whole Blood 146 mg/dL (70-110)
[2023-04-27 13:31] LABS: Glucose,Whole Blood 158 mg/dL (70-110)
[2023-04-27] MEDS: fentaNYL (PF) 50 MCG/ML 2 ML AMP IV PRN (14:02)
[2023-04-27] MEDS: HYDROmorphone 0.5 MG/0.5 ML SYRINGE IVP PRN (14:38)
[2023-04-27] MEDS: HYDROmorphone 0.5 MG/0.5 ML SYRINGE IVP ONE (15:01)
[2023-04-27] MEDS: HYDROcodone/APAP 7.5-325MG 1 EACH TAB PO PRN (16:49)
[2023-04-27] MEDS: SENNOSIDES-DOCUSATE SODIUM 1 EACH TAB PO SCH (21:34)
[2023-04-27 21:50] VITALS: RESP 18
[2023-04-28] MEDS: HYDROcodone/APAP 5-325MG 1 EACH TAB PO PRN (02:37)
--- NOTE | 2023-04-28 05:18 | P.CONS ---
History of Present Illness - Reason for Consult Consult date: 04/27/23 Postop medical management - Chief Complaint Right hip replacement - History of Present Illness 72-year-old female with hypertension Patient coming in with long history of debilitating right hip pain due to advanced osteoarthritis affecting her activities of daily living patient tolerated procedure very well no observed immediate postoperative complications denies any chest pain trouble breathing nausea vomiting abdominal pain Patient expresses her gratitude she feels very comfortable feels 0 pain at this time excited about her Hip she ambulated with assistance. Tolerated p.o. intake and went to the bathroom earlier Patient denies any tobacco smoking or heavy alcohol review of systems Pertinent positives as noted in HPI. All other systems were reviewed and are negative on exam Constitutional: No acute distress, conversant, pleasant Eyes: Anicteric sclerae, moist conjunctiva, Pupils equal round reactive to light ENMT: NC/AT Oropharynx clear, no erythema, or exudates Neck: Supple, no masses, or JVD No carotid bruits No thyromegaly Lungs: Clear to auscultation Clear to percussion Normal respiratory effort, no accessory muscle use Cardiovascular: Heart regular in rate and rhythm, No murmurs, gallops, or rubs No peripheral edema Abdominal: Soft Nontender, no guarding, rebound or rigidity Abdomen moving with respiration Normoactive bowel sounds Extremities: No digital cyanosis No clubbing Pedal pulses intact and symmetrical Radial pulses intact and symmetrical No calf tenderness Psychiatric: Alert and oriented to person, place and time Appropriate affect fair judgement Neuro Muscles Strength 5/5 in all 4 extremities with some limited exam right lower extremity due to postop Sensation to light touch grossly present throughout Cranial nerves II-XII grossly intact Past Medical History Past Medical History: Hypertension, Seizure Disorder Additional Past Medical History / Comment(s): doesn't take meds for high BP, past hx. of seizures-last 6 yrs. ago-no further tx. for History of Any Multi-Drug Resistant Organisms: None Reported Past Surgical History: Cholecystectomy, Hernia Repair, Hysterectomy, Joint Replacement, Tonsillectomy, Tubal Ligation Additional Past Surgical History / Comment(s): brain surg. x2-cavernous angioma, gamma knife surg. for AVM, hernia repair x3, right knee replaced, growth removed from thyroid 3 years ago Past Anesthesia/Blood Transfusion Reactions: No Reported Reaction Past Psychological History: Depression Additional Psychological History / Comment(s): no problems since divorce 15 yrs ago Smoking Status: Never smoker Past Alcohol Use History: None Reported Past Drug Use History: None Reported Additional Drug Use History / Comment(s): gummies for sleep in past. pt aware no to use 24 hrs before surgery - Past Family History Mother Family Medical History: COPD, Myocardial Infarction ([place]) Father Family Medical History: Myocardial Infarction ([place]) Medications and Allergies Home Medications Medication Instructions Recorded Confirmed Type Multivitamins, Thera [Multivitamin 1 tab PO DAILY 12/08/22 04/27/23 History (formulary)] Acetaminophen [Tylenol Extra 2,000 mg PO HS 04/20/23 04/27/23 History Strength] lisinopriL [Lisinopril] 40 mg PO DAILY 04/20/23 04/27/23 History Allergies Allergy/AdvReac Type Severity Reaction Status Date / Time Sulfa (Sulfonamide Allergy Rash/Hives Verified 04/27/23 09:06 Antibiotics) adhesive AdvReac Rash/Hives Verified 04/27/23 09:06 codeine AdvReac Confusion Verified 04/27/23 09:06 Physical Exam Vitals: Vital Signs Temp Pulse Pulse Resp BP Pulse Ox 04/28/23 01:53 98.2 F 94 18 121/76 99 04/27/23 19:41 98.5 F 92 18 137/82 97 04/27/23 16:15 97.8 F 99 16 145/87 97 04/27/23 15:22 100 16 146/88 98 04/27/23 15:02 102 H 16 159/88 97 04/27/23 14:17 96 14 135/75 90 L 04/27/23 14:02 98 16 155/78 96 04/27/23 13:31 98 16 122/73 96 04/27/23 13:00 96 14 130/76 96 04/27/23 12:45 99 14 128/74 95 04/27/23 12:30 93 14 122/66 96 04/27/23 12:14 92 14 128/74 94 L 04/27/23 11:58 97.0 F L 100 14 97/56 98 04/27/23 10:05 77 16 127/79 99 04/27/23 09:15 97.8 F 86 16 145/84 98 Intake and Output 04/27/23 04/27/23 04/28/23 14:59 22:59 06:59 Intake Total 2201 Output Total 75 Balance 2125 Intake: IV 1 Output: Estimated Blood Loss 75 Other: Voiding Method Toilet # Voids 1 Weight 81.8 kg 81.8 kg Results Labs: Abnormal Lab Results - Last 24 Hours (Table) 04/27/23 04/27/23 04/27/23 Range/Units 09:34 12:28 13:29 POC Glucose (mg/dL) 132 H 146 H 158 H (70-110) mg/dL Assessment and Plan Assessment: Hypertension controlled Resume lisinopril Right total hip arthroplasty postoperative day 0 Pain control DVT prophylaxis per primary orthopedic team Check CBC BMP in the morning Stable from medical standpoint Thank you for this consultation
[2023-04-28 07:54] VITALS: BP 136/76; PULSE 98; TEMP 98.7
[2023-04-28] MEDS: ENOXAPARIN 40 MG/0.4 ML SYRINGE SQ SCH (09:52)
[2023-04-28] MEDS: lisinopriL 20 MG TAB PO SCH (09:52)
--- NOTE | 2023-04-28 11:14 | P.DS ---
Providers Date of admission: 04/27/2023 Expected date of discharge: 04/28/23 Attending physician: Dameon Perez Consults: 04/27/23 11:51 Consult Physician Routine Consulting Provider: Tha Mckinney Consult Reason/Comments: Medical management Do you want consulting provider notified?: Yes Primary care physician: Tha Mckinney MD Hospital Course: Date of admission: 04/27/2023 Date of discharge: 04/28/2023 Admission diagnosis: Right hip osteoarthritis Discharge diagnosis: Same Attending physician: Dr. Perez Surgical procedures: Right total hip arthroplasty Brief history: Patient is a 72-year-old female with a history of progressive primary right hip osteoarthritis. At this point patient has failed conservative treatment measures and has opted to proceed with a elective a total hip arthroplasty. Hospital course: Details of patient's surgery can be found in operative report. Patient tolerated the procedure well and was subsequently transported to orthopedic floor. Patient's orthopeidc and medical care was provided daily. Patient had daily laboratory tests performed for evaluation of overall blood counts. Patient had daily physical therapy to include strengthening range of motion as well as education with walker ambulation. Patient was treated with Lovenox for their postoperative DVT prophylaxis during their inpatient stay. Patient was noted to have a relatively uneventful postoperative course. Patient reported satisfactory pain control with oral pain medications by postoperative day 1. Patient showed satisfactory progress with physical therapy. Patient moved steadily through the program and had no difficulty meeting the goals by postoperative day 1. Given patient's otherwise satisfactory course and having met physical therapy goals, plan is to discharge patient home without services on postoperative day 1. Discharge condition/disposition: Patient will be discharged home with health services in stable condition. Discharge medications: Instructions are given on resumption of patient's normal daily medications per primary care recommendation, in addition patient will be prescribed [place]; senna; aspirin 81 mg twice a day 30 days. Discharge instructions: 1. Wound care and infection precautions, keep incision dry and covered while showering, no lotions, creams, moisturizers. No soaking, tubs, pools, hottubs. Do not scrub over the incision. 2. Weight-bear as tolerated with walker / cane until follow-up. 3. Ice and elevate when necessary. Do not exceed 20 minutes per hour with ice pack. 4. Utilize compression sleeve until seen at first follow up appointment. 5. Visiting nursing care. 6. Home physical therapy including home CPM. 7. Pain meds and anticoagulants per prescription. 8. Pain medication has potential to cause constipation. Increase oral fluid and fiber intake. Contact primary care provider if you have not had a bowel movement within 48 hours after discharge 9. No anti-inflammatory medication until discussed at first post operative visit, this including Motrin, Aleve, Mobic, Diclofenac. 10. Follow up in office at 2 weeks postop with Victoriano Brambila PA-C / Riaz Guzman PA-C 11. Follow up with your primary care doctor 7-10 days after discharge. 12. Contact [facility] with any questions, . Keep incision clean, dry, intact. While showering, cover silver foam dressing with Saran wrap or stick and seal. Silver foam dressing may removed on 05/04/2023. Once dressing is removed, it is okay to shower directly over incision Assessment: Right hip osteoarthritis Procedures: Right total hip arthroplasty Patient Condition at Discharge: Good Plan - Discharge Summary Discharge Rx Participant: Yes New Discharge Prescriptions: No Action Multivitamins, Thera [Multivitamin (formulary)] 1 tab PO DAILY lisinopriL [Lisinopril] 40 mg PO DAILY Acetaminophen [Tylenol Extra Strength] 2,000 mg PO HS Discharge Medication List Multivitamins, Thera [Multivitamin (formulary)] 1 tab PO DAILY 12/08/22 [History] Acetaminophen [Tylenol Extra Strength] 2,000 mg PO HS 04/20/23 [History] lisinopriL [Lisinopril] 40 mg PO DAILY 04/20/23 [History] Follow up Appointment(s)/Referral(s): [facility], [NON-STAFF] - 1-2 Days ([facility] will call you to schedule your in home nursing and physical therapy visits. ) Lucio Brambila PAC [PHYSICIAN ELECTRICAL HIGH TENSION TESTER] - 2 Weeks Activity/Diet/Wound Care/Special Instructions: Discharge instructions: 1. Wound care and infection precautions, keep incision dry and covered while showering, no lotions, creams, moisturizers. No soaking, tubs, pools, hottubs. Do not scrub over the incision. 2. Weight-bear as tolerated with walker / cane until follow-up. 3. Ice and elevate when necessary. Do not exceed 20 minutes per hour with ice pack. 4. Utilize compression sleeve until seen at first follow up appointment. 5. Visiting nursing care. 6. Home physical therapy including home CPM. 7. Pain meds and anticoagulants per prescription. 8. Pain medication has potential to cause constipation. Increase oral fluid and fiber intake. Contact primary care provider if you have not had a bowel movement within 48 hours after discharge 9. No anti-inflammatory medication until discussed at first post operative visit, this including Motrin, Aleve, Mobic, Diclofenac. 10. Follow up in office at 2 weeks postop with Victoriano Brambila PA-C / Riaz Guzman PA-C 11. Follow up with your primary care doctor 7-10 days after discharge. 12. Contact [facility] with any questions, . Keep incision clean, dry, intact. While showering, cover silver foam dressing with Saran wrap or stick and seal. Silver foam dressing may removed on 05/04/2023. Once dressing is removed, it is okay to shower directly over incision Discharge Disposition: HOME WITH HOME HEALTH SERVICES
--- NOTE | 2023-04-28 12:36 | P.PN ---
Subjective Progress Note Date: 04/28/23 Subjective: Patient seen and examined at bedside. No acute events overnight. Pertinent positives and negatives as discussed above, a complete review of systems was performed and all other systems are negative. Vitals Signs Reviewed. General: Nontoxic, no distress, appears at stated age Derm: Warm, dry, dressing clean, dry, intact Head: Atraumatic, normocephalic, symmetric Eyes: EOMI, no lid lag, anicteric sclera Mouth: No lip lesion, mucus membranes moist Cardiovascular: S1S2 reg, no murmur Lungs: CTA bilateral, no rhonchi, no rales, no accessory muscle use Abdominal: Soft, nontender to palpation, no guarding, no appreciable organomegaly Ext: No gross muscle atrophy, no edema, no contractures Neuro: CN II-XI grossly intact, no focal neuro deficits Psych: Alert, oriented, appropriate affect Data Reviewed Today: Pertinent Labs: Blood sugars doing between 32- 58, CBC and BMP pending, will be reviewed when available Imaging: No new imaging Assessment and Plan: Status post right hip arthroplasty Pain control with oral [place] as needed, IV Dilaudid as needed Bowel regimen per orthopedic surgery Lovenox 40 subcu daily for DVT prophylaxis Hypertensionlisinopril 40 mg daily Patient is medically optimized for discharge home. Thank you for allowing us to participate in the care of this pleasant patient. Do not hesitate to contact us with questions. Someone can be reached from the [facility] hospitalist group all hours of the day at [phone] or via perfect serve. Objective - Vital Signs Vital signs: Vital Signs Temp 98.7 F 04/28/23 07:14 Pulse 98 04/28/23 07:14 Resp 18 04/28/23 07:14 BP 136/76 04/28/23 07:14 Pulse Ox 90 L 04/28/23 07:14 FiO2 Intake & Output 04/27/23 04/28/23 04/28/23 18:59 06:59 18:59 Intake Total 2201 Output Total 75 Balance 2125 Weight 81.8 kg Intake: IV 2200 Output: Estimated Blood Loss 75 Other: Voiding Method Toilet # Voids 1 1 - Labs Labs: Abnormal Lab Results - Last 24 Hours (Table) 04/27/23 Range/Units 13:29 POC Glucose (mg/dL) 158 H (70-110) mg/dL
[2023-04-28 12:56] LABS: Basophils # (A) 0 X 10*3/uL (0.00-0.10); Basophils % (A) 0 %; Eosinophils # (A) 0 X 10*3/uL (0.04-0.35); Eosinophils % (A) 0 %; HCT 31.6 % (37.2-46.3); HGB 10.3 g/dL (12.0-15.0); Lymphocytes # (A) 1.42 X 10*3/uL (0.90-5.00); Lymphocytes % (A) 12.2 %; MCH 29.9 pg (27.0-32.0); MCHC 32.6 g/dL (32.0-37.0); MCV 91.6 FL (80.0-97.0); Mean Platelet Volume 9.8 FL (9.5-12.2); Monocytes # (A) 0.64 X 10*3/uL (0.20-1.00); Monocytes % (A) 5.5 %; NRBC Per 100 WBC 0 X 10*3/uL (0.00-0.01); Neutrophils # (A) 9.51 X 10*3/uL (1.80-7.70); Platelet Count 124 X 10*3/uL (140-440); RBC 3.45 X 10*6/uL (4.10-5.20); RDW 14.1 % (11.5-14.5); WBC 11.61 X 10*3/uL (4.50-10.00)
--- NOTE | 2023-04-28 13:13 | P.PN ---
Subjective Progress Note Date: 04/28/23 Principal diagnosis: Right hip osteoarthritis Patient was seen at bedside this morning sitting up in chair with legs elevated. Patient says she has been walking around the room several times since surgery. Patient says she did work well with therapy this morning walked down the garza and up-and-down stairs. Patient says she does need a walker home. Patient is looking forward to going home later today. Patient says she did not have pain overnight. Patient denies chest pain, fever, shortness breath, nausea, vomiting, change in vision, loss of bowel/bladder control. Objective - Vital Signs Vital signs: Vital Signs Temp 98.7 F 04/28/23 07:14 Pulse 98 04/28/23 07:14 Resp 18 04/28/23 07:14 BP 136/76 04/28/23 07:14 Pulse Ox 90 L 04/28/23 07:14 FiO2 Intake & Output 04/27/23 04/28/23 04/28/23 18:59 06:59 18:59 Intake Total 2201 Output Total 75 Balance 2125 Weight 81.8 kg Intake: IV 2200 Output: Estimated Blood Loss 75 Other: Voiding Method Toilet # Voids 1 1 - Exam Right hip: Incision is clean, dry, and intact. The silver foam dressing is in good condition. There is minimal soft tissue swelling and ecchymosis surrounding the medial and lateral aspects of the incision. Calf is soft, no tenderness with palpation. Plantar flexion, dorsiflexion, EHL, FHL are intact. Sensory exam to light touch throughout the extremity is intact, dorsal pedis pulses 2+. - Labs CBC & Chem 7: 04/28/23 06:29 Labs: Abnormal Lab Results - Last 24 Hours (Table) 04/27/23 04/27/23 Range/Units 12:28 13:29 POC Glucose (mg/dL) 146 H 158 H (70-110) mg/dL Assessment and Plan Assessment: 1. Right hip osteoarthritis - Postop day #1 status post right total hip arthroplasty Plan: 1. Right hip osteoarthritis - right total hip arthroplasty performed yesterday, 03/27/2023. Patient stable at bedside this morning. Prescription for walker was signed for home. Patient did do well with physical therapy this m orning. Discharge home today with health services. 2. Appreciate medical management 3. Pain management - [place] 4. DVT prophylaxis - Lovenox in hospital. Going home with aspirin 81 mg twice a day 30 days 5. GI prophylaxis - senna 6. PT/OT - weightbearing as tolerated with walker 7. Encourage incentive spirometer use 8. Discharge planning - home today with health services Time with Patient: Less than 30
[2023-04-28 13:16] LABS: BUN/Creat Ratio 22.78 Ratio (12.00-20.00); Blood Urea Nitrogen 20.5 mg/dL (9.0-27.0); Calcium 8.9 mg/dL (8.7-10.3); Carbon Dioxide 23.7 mmol/L (21.6-31.8); Chloride 105 mmol/L (96-109); Glucose 116 mg/dL (70-110); Potassium 3.9 mmol/L (3.5-5.5); Sodium 142 mmol/L (135-145)
== END 2023-04-28 14:10 | disposition home health service (06) ==
LOC: OR 08:12 → 4SSUR 14:45 → OR 04-28 14:10
PROVIDERS: ATTEND Orthopaedic Surgery
DX: M16.11 Unilateral primary osteoarthritis, right hip (principal); G89.18 Other acute postprocedural pain; Z90.49 Acquired absence of other specified parts of digestive tract; Z90.89 Acquired absence of other organs; Z88.5 Allergy status to narcotic agent; Z88.2 Allergy status to sulfonamides; Z79.899 Other long term (current) drug therapy
CPT/HCPCS: 97161; 64447; 80048; 85025; 73501; 27130; C1776; J2250; J1100; J0690 ×3; J2405; J1650; J3010; J1170

== ENCOUNTER 2023-08-11 08:35 | Emergency (ER) | payer MEDICARE, OTHER ==
[2023-08-11 10:49] LABS: Appearance,Urine Cloudy (Clear); Bacteria,Urine Many /hpf; Bilirubin,Urine Negative (Negative); Blood,Urine Negative (Negative); Calcium Oxalate Crystals,Urine Many /hpf; Color,Urine Yellow; Glucose,Urine (UA) Negative (Negative); Ketones,Urine Negative (Negative); Leukocyte Esterase,Urine Large (Negative); Mucus,Urine Few /hpf; Nitrite,Urine Positive (Negative); PH, Urine 5.5 (5.0-8.0); Protein,Urine Trace (Negative); RBC,Urine 2 /hpf (0-5); Specific Gravity,Urine 1.032 (1.001-1.035); Squamous Epithelial Cell,Urine 9 /hpf (0-4); Urobilinogen,Urine <2.0 mg/dL (<2.0); WBC,Urine 74 /hpf (0-5)
--- NOTE | 2023-08-11 11:09 | ED ---
Back Pain HPI - General Chief Complaint: Back Pain/Injury Stated Complaint: poss kidney pain Time Seen by Provider: 08/11/23 08:50 Source: patient, RN notes reviewed Mode of arrival: ambulatory Limitations: no limitations - History of Present Illness Initial Comments: 72-year-old female presents emergency department chief complaint of left flank pain. Patient had urinary tract infections in the past. Patient states she has pain when she lays down minimal with movement. No trauma no rashes no other complaints. - Related Data Home Medications Medication Instructions Recorded Confirmed Multivitamins, Thera [Multivitamin 1 tab PO DAILY 12/08/22 04/27/23 (formulary)] Acetaminophen [Tylenol Extra 2,000 mg PO HS 04/20/23 04/27/23 Strength] lisinopriL [Lisinopril] 40 mg PO DAILY 04/20/23 04/27/23 Previous Rx's Medication Instructions Recorded Aspirin [Adult Low Dose Aspirin EC] 81 mg PO BID #60 tab 04/28/23 HYDROcodone/APAP 5-325MG [[place] 1 - 2 tab PO Q6HR PRN #36 tab 04/28/23 5-325] Sennosides/Docusate Sodium [Senna 1 each PO DAILY #20 capsule 04/28/23 Plus 8.6-50 mg Softgel] Cephalexin [Keflex] 500 mg PO Q8HR #21 cap 08/11/23 Allergies Allergy/AdvReac Type Severity Reaction Status Date / Time Sulfa (Sulfonamide Allergy Rash/Hives Verified 08/11/23 08:48 Antibiotics) adhesive AdvReac Rash/Hives Verified 08/11/23 08:48 codeine AdvReac Confusion Verified 08/11/23 08:48 Review of Systems ROS Statement: Those systems with pertinent positive or pertinent negative responses have been documented in the HPI. ROS Other: All systems not noted in ROS Statement are negative. Past Medical History Past Medical History: Hypertension, Seizure Disorder Additional Past Medical History / Comment(s): doesn't take meds for high BP, past hx. of seizures-last 6 yrs. ago-no further tx. for History of Any Multi-Drug Resistant Organisms: None Reported Past Surgical History: Cholecystectomy, Hernia Repair, Hysterectomy, Joint Replacement, Tonsillectomy, Tubal Ligation Additional Past Surgical History / Comment(s): brain surg. x2-cavernous angioma, gamma knife surg. for AVM, hernia repair x3, right knee replaced, growth removed from thyroid 3 years ago Past Anesthesia/Blood Transfusion Reactions: No Reported Reaction Past Psychological History: Depression Smoking Status: Never smoker Past Alcohol Use History: None Reported Past Drug Use History: None Reported - Past Family History Mother Family Medical History: COPD, Myocardial Infarction ([place]) Father Family Medical History: Myocardial Infarction ([place]) General Exam Limitations: no limitations General appearance: alert, in no apparent distress Head exam: Present: atraumatic, normocephalic, normal inspection Neck exam: Present: normal inspection. Absent: tenderness, meningismus, lymphadenopathy Respiratory exam: Present: normal lung sounds bilaterally. Absent: respiratory distress, wheezes, rales, rhonchi, stridor Cardiovascular Exam: Present: regular rate, normal rhythm, normal heart sounds. Absent: systolic murmur, diastolic murmur, rubs, gallop, clicks GI/Abdominal exam: Present: soft, normal bowel sounds. Absent: distended, tenderness, guarding, rebound, rigid Back exam: Present: CVA tenderness (R) Course Vital Signs 08/11/23 08:46 Temperature 98.4 F Pulse Rate 90 Respiratory 20 Rate Blood Pressure 126/80 O2 Sat by Pulse 99 Oximetry Medical Decision Making - Medical Decision Making Was pt. sent in by a medical professional or institution (JACKIE Ramos, CENTRAL SCHEDULER, urgent care, hospital, or snf...) When possible be specific @ -[No] Did you speak to anyone other than the patient for history (EMS, parent, family, police, friend...)? What history was obtained from this source @ -[No] Did you review nursing and triage notes (agree or disagree)? Why? @ -I reviewed and agree with nursing and triage notes Were old charts reviewed (outside hosp., previous admission, EMS record, old EKG, old radiological studies, urgent care reports/EKG's, snf records)? Report findings @ -No old charts were reviewed Differential Diagnosis (chest pain, altered mental status, abdominal pain women, abdominal pain men, vaginal bleeding, weakness, fever, dyspnea, syncope, headache, dizziness, GI bleed, back pain, seizure, CVA, palpatations, mental health, musculoskeletal)? @UTI back pain EKG interpreted by me (3pts min.). @ -[None X-rays interpreted by me (1pt min.). @ -None done CT interpreted by me (1pt min.). @ -None done U/S interpreted by me (1pt. min.). @ -None done What testing was considered but not performed or refused? (CT, X-rays, U/S, labs)? Why? @ -None What meds were considered but not given or refused? Why? @ -None Did you discuss the management of the patient with other professionals (professionals i.e. , PA, CENTRAL SCHEDULER, lab, RT, psych nurse, social media sr strategy manager, hospice chaplain, teacher, supervisory cbp officer, showcase maker)? Give summary @ -No Was smoking cessation discussed for >3mins.? @ -No Was critical care preformed (if so, how long)? @ -No Were there social determinants of health that impacted care today? How? (Homelessness, low income, unemployed, alcoholism, drug addiction, transportation, low edu. Level, literacy, decrease access to med. care, detention, rehab)? @ -No Was there de-escalation of care discussed even if they declined (Discuss DNR or withdrawal of care, Hospice)? DNR status @ -No What co-morbidities impacted this encounter? (DM, HTN, Smoking, COPD, CAD, Cancer, CVA, ARF, Chemo, Hep., AIDS, mental health diagnosis, sleep apnea, morbid obesity)? @ -None Was patient admitted / discharged? Hospital course, mention meds given and route, prescriptions, significant lab abnormalities, going to OR and other pertinent info. @ -Discharge patient does have evidence of UTI. Patient had urine culture, patient was given Rocephin 1 g discharged on oral antibiotics. Undiagnosed new problem with uncertain prognosis? @ -No Drug Therapy requiring intensive monitoring for toxicity (Heparin, Nitro, Insulin, Cardizem)? @ -No Were any procedures done? @ -No Diagnosis/symptom? @ -UTI Acute, or Chronic, or Acute on Chronic? @ -Acute Uncomplicated (without systemic symptoms) or Complicated (systemic symptoms)? @ -Uncomplicated Side effects of treatment? @ -No Exacerbation, Progression, or Severe Exacerbation? @ -No Poses a threat to life or bodily function? How? (Chest pain, [place], [place], pneumonia, PE, COPD, DKA, ARF, appy, cholecystitis, CVA, Diverticulitis, Homicidal, Suicidal, threat to staff... and all critical care pts) @ -No - Lab Data Lab Results 08/11/23 Range/Units 09:28 Urine Color Yellow Urine Appearance Cloudy H (Clear) Urine pH 5.5 (5.0-8.0) Ur Specific [place] 1.032 (1.001-1.035) Urine Protein Trace H (Negative) Urine Glucose (UA) Negative (Negative) Urine Ketones Negative (Negative) Urine Blood Negative (Negative) Urine Nitrite Positive H (Negative) Urine Bilirubin Negative (Negative) Urine Urobilinogen <2.0 (<2.0) mg/dL Ur Leukocyte Esterase Large H (Negative) Urine RBC 2 (0-5) /hpf Urine WBC 74 H (0-5) /hpf Ur Squamous Epith Cells 9 H (0-4) /hpf Calcium Oxalate Crystal Many H (None) /hpf Urine Bacteria Many H (None) /hpf Urine Mucus Few H (None) /hpf Disposition Clinical Impression: UTI (urinary tract infection) Disposition: HOME SELF-CARE Condition: Stable Instructions (If sedation given, give patient instructions): Urinary Tract Infection in Women (ED) Additional Instructions: Please return to the Emergency Department if symptoms worsen or any other concerns. Prescriptions: Cephalexin [Keflex] 500 mg PO Q8HR #21 cap Is patient prescribed a controlled substance at d/c from ED?: No Referrals: Tha Mckinney MD [Primary Care Provider] - 1-2 days Time of Disposition: 11:07
[2023-08-11] MEDS: cefTRIAXone 1,000 MG VIAL (IM USE) IM STA (11:18)
[2023-08-11 11:32] VITALS: BP 149/79; PULSE 78; RESP 18; TEMP 98.3
== END 2023-08-11 11:30 | disposition home or self-care (01) ==
LOC: EC 08:35
DX: N39.0 Urinary tract infection, site not specified (principal); Z88.2 Allergy status to sulfonamides; Z88.5 Allergy status to narcotic agent; Z91.09 Other allergy status, other than to drugs and biological substances
CPT/HCPCS: 81001; 87086; 99283; 96372; J0696

== ENCOUNTER 2024-08-30 11:17 | Observation (INO) | payer MEDICARE, OTHER ==
--- NOTE | 2024-08-30 12:50 | ED ---
Weakness HPI - General Source: patient, family, RN notes reviewed Mode of arrival: wheelchair Limitations: physical limitation <Esme Saleh - Last Filed: 08/30/24 12:49> - General Source: patient, family, RN notes reviewed Limitations: no limitations <Mahin Root - Last Filed: 08/30/24 15:22> - General Chief complaint: Weakness Stated complaint: Weakness Time Seen by Provider: 08/30/24 12:49 - History of Present Illness Initial comments: Quick note: 74 old female presented the ER for evaluation of weakness. Patient states over the past week she has had progressively worsening weakness. She states yesterday she slept all day. She reports decreased appetite. She denies any abdominal pain, nausea, vomiting, fevers, chest pain or shortness of breath. Patient does report she "lost today" stating I do not remember an entire day. (Esme Saleh) Patient is a 74-year-old female present to the emergency department with concerns of weakness. Symptoms have been progressing over the past 7 to 10 days. Patient has difficulty getting around. Patient admits that she feels short of breath from the exertion however does not believe that the breathing is causing her general weakness. Patient has more fatigue. No chest pain. Patient unable to finish her showering because of fatigue. (Mahin Root) - Related Data Home Medications Medication Instructions Recorded Confirmed Multivitamins, Thera [Multivitamin 1 tab PO DAILY 12/08/22 04/27/23 (formulary)] Acetaminophen [Tylenol Extra 2,000 mg PO HS 04/20/23 04/27/23 Strength] lisinopriL [Lisinopril] 40 mg PO DAILY 04/20/23 04/27/23 Previous Rx's Medication Instructions Recorded Aspirin [Adult Low Dose Aspirin EC] 81 mg PO BID #60 tab 04/28/23 HYDROcodone/APAP 5-325MG [[place] 1 - 2 tab PO Q6HR PRN #36 tab 04/28/23 5-325] Sennosides/Docusate Sodium [Senna 1 each PO DAILY #20 capsule 04/28/23 Plus 8.6-50 mg Softgel] Cephalexin [Keflex] 500 mg PO Q8HR #21 cap 08/11/23 Allergies Allergy/AdvReac Type Severity Reaction Status Date / Time Sulfa (Sulfonamide Allergy Rash/Hives Verified 08/30/24 11:53 Antibiotics) adhesive AdvReac Rash/Hives Verified 08/30/24 11:53 codeine AdvReac Confusion Verified 08/30/24 11:53 Review of Systems ROS Other: All systems not noted in ROS Statement are negative. <Esme Saleh - Last Filed: 08/30/24 12:49> ROS Other: All systems not noted in ROS Statement are negative. Constitutional: Denies: fever Eyes: Denies: eye pain ENT: Denies: throat pain Respiratory: Reports: as per HPI Cardiovascular: Denies: chest pain Endocrine: Reports: fatigue Gastrointestinal: Denies: abdominal pain <Mahin Root - Last Filed: 08/30/24 15:22> ROS Statement: Those systems with pertinent positive or pertinent negative responses have been documented in the HPI. Past Medical History Past Medical History: Hypertension, Seizure Disorder Additional Past Medical History / Comment(s): doesn't take meds for high BP, past hx. of seizures-last 6 yrs. ago-no further tx. for History of Any Multi-Drug Resistant Organisms: None Reported Past Surgical History: Cholecystectomy, Hernia Repair, Hysterectomy, Joint Replacement, Tonsillectomy, Tubal Ligation Additional Past Surgical History / Comment(s): brain surg. x2-cavernous angioma, gamma knife surg. for AVM, hernia repair x3, right knee replaced, growth re moved from thyroid 3 years ago Past Anesthesia/Blood Transfusion Reactions: No Reported Reaction Past Psychological History: Depression Smoking Status: Never smoker Past Alcohol Use History: None Reported Past Drug Use History: Marijuana - Past Family History Mother Family Medical History: COPD, Myocardial Infarction ([place]) Father Family Medical History: Myocardial Infarction ([place]) <Esme Saleh - Last Filed: 08/30/24 12:49> General Exam Limitations: physical limitation <Esme Saleh - Last Filed: 08/30/24 12:49> Limitations: no limitations General appearance: alert, in no apparent distress Head exam: Present: atraumatic Eye exam: Present: normal appearance Respiratory exam: Present: normal lung sounds bilaterally Cardiovascular Exam: Present: regular rate, normal rhythm GI/Abdominal exam: Present: soft. Absent: tenderness Extremities exam: Present: normal inspection Neurological exam: Present: alert, oriented X3, CN II-XII intact. Absent: motor sensory deficit Psychiatric exam: Present: normal affect, normal mood Skin exam: Present: normal color <Mahin Root - Last Filed: 08/30/24 15:22> - General Exam Comments Initial Comments: Visual Physical Exam Vital signs reviewed General: Well-appearing, nontoxic, no acute distress. Head: Normocephalic, atraumatic Eyes: PERRLA, EOMI ENT: Airway patent Chest: Nonlabored breathing Skin: No visual rash, normal skin tone Neuro: Alert and oriented 3 Musculoskeletal: No gross abnormalities (Esme Saleh) Course Vital Signs 08/30/24 08/30/24 11:53 15:18 Temperature 97.8 F Pulse Rate 88 74 Respiratory 18 16 Rate Blood Pressure 111/71 113/80 O2 Sat by Pulse 100 99 Oximetry EKG Findings - EKG Results: EKG: interpreted by ERMD, sinus rhythm, normal axis, normal QRS, normal ST/T <Mahin Root - Last Filed: 08/30/24 15:22> Medical Decision Making <Esme Saleh - Last Filed: 08/30/24 12:49> - Lab Data Result diagrams: 08/30/24 13:16 08/30/24 13:16 <Mahin Root - Last Filed: 08/30/24 15:22> - Medical Decision Making I performed the quick note portion of this chart. Electronically signed by Esme Saleh PA-C (Esme Saleh) Was pt. sent in by a medical professional or institution (JACKIE Ramos, EXTERNAL GRINDER TENDER, urgent care, hospital, or usp...) When possible be specific @ -No Did you speak to anyone other than the patient for history (EMS, parent, family, police, friend...)? What history was obtained from this source @ -Daughters present helps provide history including patient's symptoms and duration Did you review nursing and triage notes (agree or disagree)? Why? @ -I reviewed and agree with nursing and triage notes Were old charts reviewed (outside hosp., previous admission, EMS record, old EKG, old radiological studies, urgent care reports/EKG's, usp records)? Report findings @ -No old charts were reviewed Differential Diagnosis (chest pain, altered mental status, abdominal pain women, abdominal pain men, vaginal bleeding, weakness, fever, dyspnea, syncope, headache, dizziness, GI bleed, back pain, seizure, CVA, palpatations, mental health, musculoskeletal)? @ -Differential Weakness: Hypoglycemia, shock, sepsis, hyponatremia, anemia, infection, [place], ETOH, adverse medicine reaction, overdose, stroke, this is not meant to be an all-inclusive list. EKG interpreted by me (3pts min.). @ -As above X-rays interpreted by me (1pt min.). @ -Chest x-ray without acute abnormality CT interpreted by me (1pt min.). @ -CT brain shows chronic changes without acute intercranial abnormality U/S interpreted by me (1pt. min.). @ -None done What testing was considered but not performed or refused? (CT, X-rays, U/S, labs)? Why? @ -None What meds were considered but not given or refused? Why? @ -None Did you discuss the management of the patient with other professionals (professionals i.e. , PA, EXTERNAL GRINDER TENDER, lab, RT, psych nurse, social media project manager, expeditionary fighting vehicle crewman, teacher, chief security and safety officer, pillowcase cutter)? Give summary @ -Dr. Marquez to admit covering Dr. Walton Was smoking cessation discussed for >3mins.? @ -No Was critical care preformed (if so, how long)? @ -No Were there social determinants of health that impacted care today? How? (Homelessness, low income, unemployed, alcoholism, drug addiction, transportation, low edu. Level, literacy, decrease access to med. care, snf, rehab)? @ -No Was there de-escalation of care discussed even if they declined (Discuss DNR or withdrawal of care, Hospice)? DNR status @ -No What co-morbidities impacted this encounter? (DM, HTN, Smoking, COPD, CAD, Cancer, CVA, ARF, Chemo, Hep., AIDS, mental health diagnosis, sleep apnea, morbid obesity)? @ -None Was patient admitted / discharged? Hospital course, mention meds given and route, prescriptions, significant lab abnormalities, going to OR and other pertinent info. @ -Patient presents with progressive fatigue, limiting her ability to walk and perform activities. Patient and family updated on results and plan. Patient will be admitted, admission orders written. Undiagnosed new problem with uncertain prognosis? @ -No Drug Therapy requiring intensive monitoring for toxicity (Heparin, Nitro, Insulin, Cardizem)? @ -No Were any procedures done? @ -No Diagnosis/symptom? @ -Weakness Acute, or Chronic, or Acute on Chronic? @ -Acute Uncomplicated (without systemic symptoms) or Complicated (systemic symptoms)? @ -Default Side effects of treatment? @ -No Exacerbation, Progression, or Severe Exacerbation? @ -No Poses a threat to life or bodily function? How? (Chest pain, [place], [place], pneumonia, PE, COPD, DKA, ARF, appy, cholecystitis, CVA, Diverticulitis, Homicidal, Suicidal, threat to staff... and all critical care pts) @ -No (Mahin Root) - Lab Data Lab Results 08/30/24 08/30/24 08/30/24 Range/Units 13:16 13:16 13:16 WBC 10.05 H (4.50-10.00) 10*3/uL RBC 4.94 (4.10-5.20) 10*6/uL Hgb 15.2 H (12.0-15.0) g/dL Hct 44.4 (37.2-46.3) % MCV 89.9 (80.0-97.0) fL MCH 30.8 (27.0-32.0) pg MCHC 34.2 (32.0-37.0) g/dL Plt Count 127 L (140-440) 10*3/uL MPV 9.4 L (9.5-12.2) fL Immature Gran % (Auto) 0.3 % Neutrophils % 72.3 % Lymphocytes % 22.2 % Monocytes % 3.9 % Eosinophils % 1.0 % Basophils % 0.3 % Immature Gran # 0.03 (0.00-0.04) 10*3/uL Neutrophils # 7.27 (1.80-7.70) 10*3/uL Lymphocytes # 2.23 (0.90-5.00) 10*3/uL Monocytes # 0.39 (0.20-1.00) 10*3/uL Eosinophils # 0.10 (0.04-0.35) 10*3/uL Basophils # 0.03 (0.00-0.10) 10*3/uL PT 11.1 (10.0-12.5) sec INR 1.0 (<1.2) APTT 21.8 L (22.0-30.0) sec Sodium 141 (137-145) mmol/L Potassium 4.1 (3.5-5.1) mmol/L Chloride 104 (98-107) mmol/L Carbon Dioxide 26 (22-30) mmol/L Anion Gap 11 mmol/L BUN 28 H (7-17) mg/dL Creatinine 0.82 (0.52-1.04) mg/dL Est GFR (CKD-EPI)AfAm 81 (>60 ml/min/1.73 sqM) Est GFR (CKD-EPI)NonAf 70 (>60 ml/min/1.73 sqM) Glucose 113 H (74-99) mg/dL Plasma Lactic Acid Collins (0.7-2.0) mmol/L Calcium 10.0 (8.4-10.2) mg/dL Total Bilirubin 0.6 (0.2-1.3) mg/dL AST 28 (14-36) U/L ALT 24 (4-34) U/L Alkaline Phosphatase 76 (38-126) U/L Troponin I (0.000-0.034) ng/mL Total Protein 7.4 (6.3-8.2) g/dL Albumin 5.0 (3.5-5.0) g/dL 08/30/24 08/30/24 Range/Units 13:16 13:16 WBC (4.50-10.00) 10*3/uL RBC (4.10-5.20) 10*6/uL Hgb (12.0-15.0) g/dL Hct (37.2-46.3) % MCV (80.0-97.0) fL MCH (27.0-32.0) pg MCHC (32.0-37.0) g/dL Plt Count (140-440) 10*3/uL MPV (9.5-12.2) fL Immature Gran % (Auto) % Neutrophils % % Lymphocytes % % Monocytes % % Eosinophils % % Basophils % % Immature Gran # (0.00-0.04) 10*3/uL Neutrophils # (1.80-7.70) 10*3/uL Lymphocytes # (0.90-5.00) 10*3/uL Monocytes # (0.20-1.00) 10*3/uL Eosinophils # (0.04-0.35) 10*3/uL Basophils # (0.00-0.10) 10*3/uL PT (10.0-12.5) sec INR (<1.2) APTT (22.0-30.0) sec Sodium (137-145) mmol/L Potassium (3.5-5.1) mmol/L Chloride (98-107) mmol/L Carbon Dioxide (22-30) mmol/L Anion Gap mmol/L BUN (7-17) mg/dL Creatinine (0.52-1.04) mg/dL Est GFR (CKD-EPI)AfAm (>60 ml/min/1.73 sqM) Est GFR (CKD-EPI)NonAf (>60 ml/min/1.73 sqM) Glucose (74-99) mg/dL Plasma Lactic Acid Collins 1.3 (0.7-2.0) mmol/L Calcium (8.4-10.2) mg/dL Total Bilirubin (0.2-1.3) mg/dL AST (14-36) U/L ALT (4-34) U/L Alkaline Phosphatase (38-126) U/L Troponin I <0.012 (0.000-0.034) ng/mL Total Protein (6.3-8.2) g/dL Albumin (3.5-5.0) g/dL Disposition <Esme Saleh - Last Filed: 08/30/24 12:49> Is patient prescribed a controlled substance at d/c from ED?: No Time of Disposition: 15:22 <Mahin Root - Last Filed: 08/30/24 15:22> Clinical Impression: Weakness Disposition: ADMITTED IP TO THIS HOSP Referrals: Josafat Madera MD [Primary Care Provider] - 1-2 days
--- NOTE | 2024-08-30 13:02 | XR ---
EXAMINATION TYPE: XR chest 2V DATE OF EXAM: 08/30/2024 12:34 PM COMPARISON: 04/10/2023 CLINICAL INDICATION: Female, 74 years old with history of Weakness, , TECHNIQUE: PA and lateral views FINDINGS: Heart normal size. Aorta and pulmonary vasculature within normal limits. Strandy atelectasis at left base. No consolidation or pleural effusion. IMPRESSION: Some strandy atelectasis at the left base. No acute process seen. [facility], Workstation: [id number], 08/30/2024 1:00 PM
--- NOTE | 2024-08-30 13:08 | CT ---
EXAMINATION TYPE: CT brain wo con DATE OF EXAM: 08/30/2024 12:23 PM COMPARISON: 04/10/2023 CLINICAL INDICATION: Female, 74 years old with history of Weakness, weakness TECHNIQUE: CT of the brain is performed utilizing 3 mm thick sections through the posterior fossa and 3 mm thick sections through the remaining calvarium. Study is performed within 24 hours of arrival to the hospital. Contrast used: mL of , (none if empty) CT DLP: 1143.3 mGycm, Automated exposure control for dose reduction was used. FINDINGS: No abnormal hyperdensity is present to suggest an acute intracranial hemorrhage. No mass lesion is evident. Physiologic basal ganglion calcifications present on the left appears stab le from comparison. Some additional calcifications in the left frontal lobe which is also stable from comparison. No acute infarcts are evident. Periventricular white matter hypodensity is present, likely on the bas is of chronic white matter ischemic changes Ventricles and sulci are mildly prominent for the patient age. Paranasal sinuses and mastoid air cells within the [id number] are clear. Hyperostosis frontalis internus, normal variant, is present. IMPRESSION: 1. No acute intracranial process. Follow up MRI can be performed as clinically indicated. 2. Chronic appearing periventricular white matter ischemic type changes. 3. Stable left hemisphere intraparenchymal calcifications. [facility], , 08/30/2024 1:06 PM
[2024-08-30 13:37] LABS: Basophils # (A) 0.03 10*3/uL (0.00-0.10); Basophils % (A) 0.3 %; HCT 44.4 % (37.2-46.3); HGB 15.2 g/dL (12.0-15.0); Lymphocytes # (A) 2.23 10*3/uL (0.90-5.00); Lymphocytes % (A) 22.2 %; MCH 30.8 pg (27.0-32.0); MCHC 34.2 g/dL (32.0-37.0); MCV 89.9 fL (80.0-97.0); Mean Platelet Volume 9.4 fL (9.5-12.2); Monocytes # (A) 0.39 10*3/uL (0.20-1.00); Monocytes % (A) 3.9 %; Neutrophils # (A) 7.27 10*3/uL (1.80-7.70); Neutrophils % (A) 72.3 %; Platelet Count 127 10*3/uL (140-440); RBC 4.94 10*6/uL (4.10-5.20); WBC 10.05 10*3/uL (4.50-10.00)
[2024-08-30 13:53] LABS: ALT 24 U/L (4-34); AST 28 U/L (14-36); African American GFR (CKD) 81 (>60 ml/min/1.73 sqM); Alkaline Phosphatase 76 U/L (38-126); Anion Gap 11 mmol/L; Blood Urea Nitrogen 28 mg/dL (7-17); Carbon Dioxide 26 mmol/L (22-30); Chloride 104 mmol/L (98-107); Glucose 113 mg/dL (74-99); Non-African American GFR(CKD) 70 (>60 ml/min/1.73 sqM); Potassium 4.1 mmol/L (3.5-5.1); Prothrombin Time 11.1 sec (10.0-12.5); Sodium 141 mmol/L (137-145); Total Bilirubin 0.6 mg/dL (0.2-1.3); Total Protein 7.4 g/dL (6.3-8.2)
[2024-08-30 14:22] LABS: Partial Thromboplastin Time 21.8 sec (22.0-30.0)
[2024-08-30] MEDS ORDERED: NALOXONE 0.4 MG/ML 1 ML VIAL IV PRN (15:22)
[2024-08-30] MEDS: SODIUM CHLORIDE 0.9% 1,000 ML IV SCH (16:00)
[2024-08-30 16:19] LABS: Appearance,Urine Cloudy (Clear); Bacteria,Urine Occasional /hpf; Bilirubin,Urine Negative (Negative); Blood,Urine Negative (Negative); Color,Urine Yellow; Glucose,Urine (UA) Negative (Negative); Hyaline Casts,Urine 7 /lpf (0-2); Ketones,Urine Negative (Negative); Leukocyte Esterase,Urine Moderate (Negative); Mucus,Urine Moderate /hpf; Nitrite,Urine Negative (Negative); PH, Urine 5.5 (5.0-8.0); Protein,Urine Negative (Negative); RBC,Urine 3 /hpf (0-5); Specific Gravity,Urine 1.033 (1.001-1.035); Squamous Epithelial Cell,Urine 4 /hpf (0-4); Urobilinogen,Urine <2.0 mg/dL (<2.0); WBC,Urine 11 /hpf (0-5)
[2024-08-31 06:40] LABS: Basophils # (A) 0.02 10*3/uL (0.00-0.10); Basophils % (A) 0.2 %; Eosinophils # (A) 0.14 10*3/uL (0.04-0.35); Eosinophils % (A) 1.7 %; HCT 38.7 % (37.2-46.3); Lymphocytes # (A) 2.15 10*3/uL (0.90-5.00); Lymphocytes % (A) 25.5 %; MCH 30.4 pg (27.0-32.0); MCHC 33.6 g/dL (32.0-37.0); MCV 90.6 fL (80.0-97.0); Mean Platelet Volume 8.8 fL (9.5-12.2); Monocytes % (A) 4.8 %; Neutrophils # (A) 5.69 10*3/uL (1.80-7.70); Neutrophils % (A) 67.6 %; Platelet Count 105 10*3/uL (140-440); RBC 4.27 10*6/uL (4.10-5.20); RDW 12.7 % (11.5-14.5); WBC 8.42 10*3/uL (4.50-10.00)
[2024-08-31 07:15] LABS: ALT 18 U/L (4-34); AST 21 U/L (14-36); African American GFR (CKD) >90 (>60 ml/min/1.73 sqM); Albumin 3.9 g/dL (3.5-5.0); Alkaline Phosphatase 59 U/L (38-126); Anion Gap 8 mmol/L; Blood Urea Nitrogen 21 mg/dL (7-17); Calcium 8.8 mg/dL (8.4-10.2); Carbon Dioxide 24 mmol/L (22-30); Chloride 108 mmol/L (98-107); Glucose 115 mg/dL (74-99); Non-African American GFR(CKD) 81 (>60 ml/min/1.73 sqM); Potassium 3.9 mmol/L (3.5-5.1); Sodium 140 mmol/L (137-145); Total Bilirubin 0.4 mg/dL (0.2-1.3); Total Protein 5.9 g/dL (6.3-8.2)
[2024-08-31] MEDS ORDERED: NON FORMULARY DRUG (Vitamin D3/Vitamin K2 (Mk4) [Vitamin K2 Plus D3 Tablet] 1 EACH Tablet) PO SCH (09:00)
[2024-08-31] MEDS: lisinopriL 20 MG TAB PO SCH (09:22)
[2024-08-31] MEDS: CHOLECALCIFEROL 125 MCG (5000 IU) TABLET PO SCH (09:22)
[2024-08-31] MEDS: FERROUS SULFATE 325 MG TAB PO SCH (09:22)
[2024-08-31] MEDS: diphenhydrAMINE 25 MG CAP PO SCH (09:22)
[2024-08-31] MEDS: ATORVASTATIN 10 MG TAB PO SCH (09:22)
[2024-08-31] MEDS: MULTIVITAMINS, THERA 1 EACH TAB PO SCH (09:22)
[2024-08-31] MEDS: LEVOTHYROXINE 75 MCG TAB PO SCH (09:32)
[2024-08-31] MEDS: DOCUSATE 100 MG CAP PO SCH (09:52)
[2024-08-31] MEDS: KETOCONAZOLE 2% SHAMPOO 1 APPLIC/ML TOPICAL SCH (10:27)
--- NOTE | 2024-08-31 16:44 | P.HPIM ---
History of Present Illness H&P Date: 08/31/24 Malena Eisenberg, 74-year-old female presented to [facility] emergency room with severe weakness. Patient stated her symptoms started 2 weeks ago and has been worsening, she was seen by her primary care physician Dr. Madera and was diagnosed with a urinary tract infection and was given a course of oral antibiotic as outpatient, patient finished her antibiotics but stated that she was having severe generalized weakness. Otherwise no specific complaint. She has a history of remote brain surgery for IV malformation, she had seizure disorder in the past, but no new seizures, last seizure was more than 15 years ago and she is not on any seizure medication. She was evaluated in the emergency room vital examination on presentation revealed a temperature of 97.6 pulse 66 respirations 16 blood pressure 161/97 pulse ox 100% on room air Laboratory data revealed a white blood count of 10.05 hemoglobin 15.2 platelet count 127 BUN 28 creatinine 0.82 troponin 0.012 TSH 2.4 urine analysis revealed moderate leukocyte esterase and 11 white blood cells Testing in the emergency room revealed chest x-ray revealed some strandy atelectasis at the left base no acute process seen, EKG revealed normal sinus rhythm normal EKG, CT scan of the brain revealed no acute intracranial process, chronic periventricular white matter ischemic type changes, and stable left hemisphere intraparenchymal calcifications Patient was admitted to medical floor for further evaluation and treatment Past Medical History Past Medical History: Hypertension, Seizure Disorder Additional Past Medical History / Comment(s): doesn't take meds for high BP, past hx. of seizures-last 6 yrs. ago-no further tx. for History of Any Multi-Drug Resistant Organisms: None Reported Past Surgical History: Cholecystectomy, Hernia Repair, Hysterectomy, Joint Replacement, Tonsillectomy, Tubal Ligation Additional Past Surgical History / Comment(s): brain surg. x2-cavernous angioma, gamma knife surg. for AVM, hernia repair x3, right knee replaced, growth removed from thyroid 3 years ago Past Anesthesia/Blood Transfusion Reactions: No Reported Reaction Past Psychological History: Depression Smoking Status: Never smoker Past Alcohol Use History: None Reported Past Drug Use History: Marijuana - Past Family History Mother Family Medical History: COPD, Myocardial Infarction ([place]) Father Family Medical History: Myocardial Infarction ([place]) Medications and Allergies Home Medications Medication Instructions Recorded Confirmed Type Multivitamins, Thera [Multivitamin 1 tab PO DAILY 12/08/22 08/30/24 History (formulary)] lisinopriL [Lisinopril] 40 mg PO DAILY 04/20/23 08/30/24 History Cholecalciferol [Vitamin D3 (125 125 mcg PO DAILY 08/30/24 08/30/24 History Mcg = 5000 Iu)] Ferrous Sulfate [Feosol] 325 mg PO DAILY 08/30/24 08/30/24 History Ketoconazole 2% Shampoo [Nizoral] 1 applic TOPICAL Q3D 08/30/24 08/30/24 History Levothyroxine Sodium [Synthroid] 75 mcg PO DAILY 08/30/24 08/30/24 History Rosuvastatin Calcium 5 mg PO DAILY 08/30/24 08/30/24 History Vitamin D3/Vitamin K2 (Mk4) 1 tab PO DAILY 08/30/24 08/30/24 History [Vitamin K2 Plus D3 Tablet] diphenhydrAMINE [Benadryl] 25 mg PO DAILY 08/30/24 08/30/24 History diphenhydrAMINE [Benadryl] 25 mg PO HS PRN 08/30/24 08/30/24 History Allergies Allergy/AdvReac Type Severity Reaction Status Date / Time Sulfa (Sulfonamide Allergy Rash/Hives Verified 08/30/24 15:58 Antibiotics) adhesive AdvReac Rash/Hives Verified 08/30/24 15:58 codeine AdvReac Confusion Verified 08/30/24 15:58 Physical Exam Vitals: Vital Signs Temp Pulse Pulse Resp BP BP Pulse Ox 08/31/24 00:48 97.6 F 66 16 161/97 100 08/30/24 19:55 97.9 F 62 17 137/80 94 L 08/30/24 16:29 98.5 F 74 147/74 99 08/30/24 16:06 76 18 124/84 97 08/30/24 15:18 74 16 113/80 99 08/30/24 11:53 97.8 F 88 18 111/71 100 Intake and Output 08/30/24 08/31/24 08/31/24 22:59 06:59 14:59 Other: # Voids 2 2 Weight 77.111 kg In general patient is alert and oriented x 3 in no distress HEENT head normocephalic and atraumatic Neck is supple no JVD no goiter no lymphadenopathy no carotid bruit Chest examination is clear to auscultation no crackles no wheezing Cardiac exam reveals regular heart sounds S1 and S2 no gallops no murmurs Abdomen is soft nontender no organomegaly with normal bowel sounds Extremity exam reveals no edema no cyanosis or clubbing Neurological examination reveals no gross focal deficits Results CBC & Chem 7: 08/31/24 06:21 08/31/24 06:21 Labs: Abnormal Lab Results - Last 24 Hours (Table) 08/30/24 08/30/24 08/30/24 Range/Units 13:16 13:16 13:16 WBC 10.05 H (4.50-10.00) 10*3/uL Hgb 15.2 H (12.0-15.0) g/dL Plt Count 127 L (140-440) 10*3/uL MPV 9.4 L (9.5-12.2) fL APTT 21.8 L (22.0-30.0) sec BUN 28 H (7-17) mg/dL Glucose 113 H (74-99) mg/dL Urine Appearance (Clear) Ur Leukocyte Esterase (Negative) Urine WBC (0-5) /hpf Urine Bacteria (None) /hpf Hyaline Casts (0-2) /lpf Urine Mucus (None) /hpf 08/30/24 08/31/24 Range/Units 15:59 06:21 WBC (4.50-10.00) 10*3/uL Hgb (12.0-15.0) g/dL Plt Count 105 L (140-440) 10*3/uL MPV 8.8 L (9.5-12.2) fL APTT (22.0-30.0) sec BUN (7-17) mg/dL Glucose (74-99) mg/dL Urine Appearance Cloudy H (Clear) Ur Leukocyte Esterase Moderate H (Negative) Urine WBC 11 H (0-5) /hpf Urine Bacteria Occasional H (None) /hpf Hyaline Casts 7 H (0-2) /lpf Urine Mucus Moderate H (None) /hpf Thrombosis Risk Factor Assmnt - Choose All That Apply Any of the Below Risk Factors Present?: Yes Assessment and Plan Plan: Severe generalized weakness Recent urinary tract infection treated as outpatient Underlying history of hypertension Previous history of seizure disorder patient is not on any seizure medications at this time last seizure 15 years ago Previous history of brain surgery twice for AV malformation Underlying history of hypothyroidism maintained on Synthroid At this time patient was seen and examined Medications reviewed and reordered Will check urine culture to assess need for further antibiotic treatment Consult neurology Consult physical therapy and Occupational Therapy Follow in a.m.
--- NOTE | 2024-08-31 17:58 | P.CNNES ---
History of Present Illness Consult date: 08/31/24 Requesting physician: Gloria Marquez Reason for Consult: Generalized weakness, remote history of seizures History of Present Illness: Patient is a 74-year-old right-handed female with history of diabetes, came to the hospital yesterday at 11:17 AM came to the hospital with generalized weakness. Patient states that about 3 weeks ago she was diagnosed with UTI, and was seen by her primary physician Dr. Adalgisa Conley who gave her antibiotics. Patient states that about 1 and half weeks ago (almost 10 days ago) she started becoming weak all over. This has progressively got worse to the point, that yesterday she was not able to shower, could not wash herself and she just sat out to dry out. She cannot function hard time walking. She can walk but not as good, not very far. If walks more than 40 feet, she wants to sit down. She denies any pain anywhere. No neck or low back pain or any headache. She denies any numbness or tingling, muscle pain or any visual problems slurred speech facial droop. Patient states in the last couple months, she started taking marijuana Gummies 5 mg tablet at bedtime. She was concerned if it is side effect of these Gummies, she stopped taking it about a week ago, but she is no better, in fact getting worse. Patient states that in her 70s, she did smoke some pot. Vital signs on arrival blood pressure 111/71, pulse rate 88 temperature 97.8. Blood test shows normal CBC, platelets are slightly decreased 105. PT PTT normal. CMP is normal. Troponin negative. UA shows moderate leukocyte Estrace 11 WBC and occasional bacteria. Chest x-ray revealed some strandy atelectasis at the left base. No acute process. EKG showed sinus rhythm. CT head revealed no acute intracranial process. Chronic appearing periventricular white matter ischemic type change. Stable left hemisphere intraparenchymal calcification. I personally reviewed CT head, agree with the findings. Patient states she has history of prediabetes, although her last A1c was 7.6, which is consistent with diabetes. She drinks alcohol very seldom, never smoked tobacco. Home medications include Crestor 5 mg, levothyroxine, ferrous sulfate, vitamin D, lisinopril 40 mg and multivitamin. She has been on Crestor only for last 3 months. Patient states she was diagnosed with cavernous angioma at [facility] about 30 years ago. She underwent surgical removal of the angioma by Dr. Rimma Tyler at [facility]. However couple years later she was found to have some AVMs for which she underwent gamma knife surgery at [facility]. She was recommended yearly MRI and she did it for 7 years but then she stopped doing it as she has been stable all these years. Patient states she has history of single seizure about 15 years ago. She was started on some seizure medication which she took for 5 years. As she stopped having seizures, says she stopped taking seizure medication and has not had any seizure since then. She has been off AED for last 10 years. She has followed up with Dr. Clayton in the past. Patient states her memory is perfectly fine. Patient states that since she arrived to the hospital, she has improved quite a bit. As an example, if her baseline level of functioning is 100%, she believes that prior to arrival it was down to 20%. Now it has improved to 50%. She still feels her walking is not normal, she feels wobbly. She states that she otherwise walks perfectly normal. Review of Systems All pertinent positive and negative review of systems mentioned in the HPI. Otherwise unremarkable. Past Medical History Past Medical History: Hypertension, Seizure Disorder Additional Past Medical History / Comment(s): doesn't take meds for high BP, past hx. of seizures-last 6 yrs. ago-no further tx. for History of Any Multi-Drug Resistant Organisms: None Reported Past Surgical History: Cholecystectomy, Hernia Repair, Hysterectomy, Joint Replacement, Tonsillectomy, Tubal Ligation Additional Past Surgical History / Comment(s): brain surg. x2-cavernous angioma, gamma knife surg. for AVM, hernia repair x3, right knee replaced, growth removed from thyroid 3 years ago Past Anesthesia/Blood Transfusion Reactions: No Reported Reaction Past Psychological History: Depression Smoking Status: Never smoker Past Alcohol Use History: None Reported Past Drug Use History: Marijuana - Past Family History Mother Family Medical History: COPD, Myocardial Infarction ([place]) Father Family Medical History: Myocardial Infarction ([place]) Medications and Allergies Home Medications Medication Instructions Recorded Confirmed Type Multivitamins, Thera [Multivitamin 1 tab PO DAILY 12/08/22 08/30/24 History (formulary)] lisinopriL [Lisinopril] 40 mg PO DAILY 04/20/23 08/30/24 History Cholecalciferol [Vitamin D3 (125 125 mcg PO DAILY 08/30/24 08/30/24 History Mcg = 5000 Iu)] Ferrous Sulfate [Feosol] 325 mg PO DAILY 08/30/24 08/30/24 History Ketoconazole 2% Shampoo [Nizoral] 1 applic TOPICAL Q3D 08/30/24 08/30/24 History Levothyroxine Sodium [Synthroid] 75 mcg PO DAILY 08/30/24 08/30/24 History Rosuvastatin Calcium 5 mg PO DAILY 08/30/24 08/30/24 History Vitamin D3/Vitamin K2 (Mk4) 1 tab PO DAILY 08/30/24 08/30/24 History [Vitamin K2 Plus D3 Tablet] diphenhydrAMINE [Benadryl] 25 mg PO DAILY 08/30/24 08/30/24 History diphenhydrAMINE [Benadryl] 25 mg PO HS PRN 08/30/24 08/30/24 History Allergies Allergy/AdvReac Type Severity Reaction Status Date / Time Sulfa (Sulfonamide Allergy Rash/Hives Verified 08/30/24 15:58 Antibiotics) adhesive AdvReac Rash/Hives Verified 08/30/24 15:58 codeine AdvReac Confusion Verified 08/30/24 15:58 Physical Examination - Vital Signs Vital Signs: Vital Signs Temp Pulse Pulse Resp BP BP Pulse Ox 08/31/24 07:00 98.6 F 62 17 148/81 100 08/31/24 00:48 97.6 F 66 16 161/97 100 08/30/24 19:55 97.9 F 62 17 137/80 94 L 08/30/24 16:29 98.5 F 74 147/74 99 08/30/24 16:06 76 18 124/84 97 08/30/24 15:18 74 16 113/80 99 Intake and Output 08/30/24 08/31/24 08/31/24 22:59 06:59 14:59 Other: # Voids 2 2 Weight 77.111 kg Patient is an elderly female, very pleasant, in no acute distress. Patient is alert awake oriented to time place and person. Speech and language functions are normal. Patient can name and repeat very well. No aphasia or dysarthria. Attention, concentration and fund of knowledge is adequate. On cranial nerve examination, pupils are equal, round and reacting to light, visual flowers are full on confrontation, with no neglect on double simultaneous stimulation. Extraocular muscles are intact with no nystagmus. Face is symmetric, tongue protrudes to the midline. Palatal elevation and sensation normal, hearing and shoulder shrug normal, facial sensation normal. On muscle strength testing, there is no pronator drift and the strength is normal in arms and legs distally and proximally. Deep tendon reflexes are symmetric absent in the upper limbs at biceps and brachioradialis, 2 at the knees, 1 ankles and plantars are probable upgoing bilaterally. Sensory to touch is equal with no neglect on double simultaneous stimulation. Cerebellar function showed no ataxia for [id number] testing, although she was slightly tremulous on the left side. No dysdiadochokinesia. No ataxia for [id number] testing on either side. Tone and bulk of muscles normal. Gait: Patient able to get up from bed without any problem. She was able to walk very normally and was able to turn without any problem. She does have slightly decreased right arm swing. However no tremors were noted. No parkinsonian symptoms. On general examination, there is no carotid bruit or murmur, S1-S2 audible. Chest is clear on consultation. Abdomen is soft nontender. No organomegaly, bowel sounds present. Peripheral pulses are present. No peripheral edema. Results - Laboratory Findings CBC and BMP: 08/31/24 06:21 08/31/24 06:21 Abnormal Lab Findings: Abnormal Labs 08/30/24 08/30/24 08/30/24 13:16 13:16 13:16 WBC 10.05 H Hgb 15.2 H Plt Count 127 L MPV 9.4 L APTT 21.8 L Chloride BUN 28 H Glucose 113 H Total Protein Urine Appearance Ur Leukocyte Esterase Urine WBC Urine Bacteria Hyaline Casts Urine Mucus 08/30/24 08/31/24 08/31/24 15:59 06:21 06:21 WBC Hgb Plt Count 105 L MPV 8.8 L APTT Chloride 108 H BUN 21 H Glucose 115 H Total Protein 5.9 L Urine Appearance Cloudy H Ur Leukocyte Esterase Moderate H Urine WBC 11 H Urine Bacteria Occasional H Hyaline Casts 7 H Urine Mucus Moderate H Assessment and Plan Assessment: * 74-year-old female admitted with 10-day history of progressive generalized weakness, of unclear etiology. Examination is completely normal. Patient had mild leukocytosis and also had mild fever. Rule out transient viral syndrome. Patient denies any pain anywhere, exact cause remains uncertain. Her weakness has improved since arrival to the hospital but not back to baseline yet. * Recent UTI, treated. * Diabetes * History of cavernous angioma left frontal region, status post surgery 30 years ago * History of AVM, status post gamma knife 28 years ago * History of a solitary seizure, off AED for last 10 years, in remission * Marijuana use * Recent UTI Plan: * Patient's generalized weakness is of unclear etiology. Examination is completely normal. Her subjective weakness has improved. Patient denies any headache. * Patient undergoing 2D echo, await results. * Check B12, folate, A1c, CK. * TSH is normal. * UA appears somewhat benign, shows moderate leukocyte Estrace and 11 WBCs and occasional bacteria. * PT OT, evaluate gait. * Neurology will follow. Thank you for the consult. Time with Patient: Greater than 30
[2024-08-31] MEDS: diphenhydrAMINE 25 MG CAP PO PRN (21:58)
[2024-09-01 01:32] VITALS: RESP 16
[2024-09-01 04:28] LABS: Basophils # (A) 0.02 10*3/uL (0.00-0.10); Basophils % (A) 0.2 %; Eosinophils # (A) 0.17 10*3/uL (0.04-0.35); Eosinophils % (A) 1.9 %; HCT 39.3 % (37.2-46.3); HGB 12.9 g/dL (12.0-15.0); Lymphocytes # (A) 2.52 10*3/uL (0.90-5.00); Lymphocytes % (A) 28.4 %; MCH 30.7 pg (27.0-32.0); MCHC 32.8 g/dL (32.0-37.0); MCV 93.6 fL (80.0-97.0); Mean Platelet Volume 9.3 fL (9.5-12.2); Monocytes # (A) 0.48 10*3/uL (0.20-1.00); Monocytes % (A) 5.4 %; Neutrophils # (A) 5.67 10*3/uL (1.80-7.70); Neutrophils % (A) 63.9 %; WBC 8.88 10*3/uL (4.50-10.00)
[2024-09-01 04:45] LABS: ALT 18 U/L (4-34); AST 24 U/L (14-36); African American GFR (CKD) >90 (>60 ml/min/1.73 sqM); Albumin 3.7 g/dL (3.5-5.0); Alkaline Phosphatase 53 U/L (38-126); Anion Gap 8 mmol/L; Blood Urea Nitrogen 17 mg/dL (7-17); Calcium 8.9 mg/dL (8.4-10.2); Carbon Dioxide 24 mmol/L (22-30); Chloride 109 mmol/L (98-107); Glucose 112 mg/dL (74-99); Non-African American GFR(CKD) 87 (>60 ml/min/1.73 sqM); Sodium 141 mmol/L (137-145); Total Bilirubin 0.4 mg/dL (0.2-1.3); Total Protein 5.8 g/dL (6.3-8.2)
[2024-09-01 06:44] LABS: Platelet Count 97 10*3/uL (140-440); RBC Morphology Normal
--- NOTE | 2024-09-01 08:07 | CA ---
Transthoracic Echo Report Name: Malena Eisenberg Age: 74 Gender: F : 1950 Exam Date: 08/31/2024 14:19 Exam Location: [facility] Ht (in): 64 Wt (lb): 170 Ordering Physician: Mahin Root DO Attending/Referring Phys: Power Tool Repair Technician Kylie García RDCS Procedure CPT: Indications: fatigue, jagruti Cardiac Hx: Technical Quality: Good Contrast 1: Total Dose (mL): Contrast 2: Total Dose (mL): MEASUREMENTS (Male / Female) Normal Values 2D ECHO LV Diastolic Diameter PLAX 4.1 cm 4.2 - 5.9 / 3.9 - 5.3 cm LV Systolic Diameter PLAX 2.4 cm IVS Diastolic Thickness 1.1 cm 0.6 - 1.0 / 0.6 - 0.9 cm LVPW Diastolic Thickness 1.0 cm 0.6 - 1.0 / 0.6 - 0.9 cm LV Relative Wall Thickness 0.5 RV Internal Dim ED PLAX 3.2 cm LVOT Diameter 1.7 cm LA Systolic Diameter LX 3.3 cm 3.0 - 4.0 / 2.7 - 3.8 cm LA Volume 40.5 cm??? 18 - 58 / 22 - 52 cm??? LA Volume Index 21.4 cm???/m??? 16 - 28 cm???/m??? DOPPLER MV Area PHT 3.1 cm??? Mitral E Point Velocity 66.6 cm/s Mitral A Point Velocity 90.4 cm/s Mitral E to A Ratio 0.7 MV Deceleration Time 241.1 ms FINDINGS Left Ventricle Left ventricular ejection fraction is estimated at 60-65%. Left ventricular cavity size normal. Mild concentric left ventricular hypertrophy. Left ventricular cavity size normal. Right Ventricle Normal right ventricular size and function. unable to estimate the right ventricular systolic pressure. Right Atrium Normal right atrial size. Left Atrium Normal left atrial size. Mitral Valve Mitral annular calcification. No mitral stenosis. Trace mitral regurgitation. Aortic Valve Trileaflet aortic valve. Aortic valve sclerosis. No aortic stenosis. No aortic regurgitation. Tricuspid Valve Structurally normal tricuspid valve. No tricuspid stenosis. Trace tricuspid regurgitation. Pulmonic Valve Structurally normal pulmonic valve. No pulmonic stenosis. Trace pulmonic regurgitation. Pericardium No pericardial effusion. Aorta Aortic annulus normal. CONCLUSIONS LVEF 60 to 65% Mild concentric LVH No obvious regional wall motion abnormality Normal RV size systolic function No significant valvular dysfunction appreciated Previewed by: Dr Joselito Yuen (Electronically Signed) Final Date: 01 September 2024 08:06
[2024-09-01 09:03] VITALS: TEMP 98.5
[2024-09-01 13:08] VITALS: BP 127/84; PULSE 69
--- NOTE | 2024-09-01 13:52 | P.DS ---
Providers Date of admission: 08/30/24 15:24 Expected date of discharge: 09/01/24 Attending physician: Gloria Marquez Consults: 08/31/24 09:35 Consult Physician Routine Consulting Provider: Anitra Colby Consult Reason/Comments: Generalized weakness, remote history of seizures Do you want consulting provider notified?: Yes Primary care physician: Josafat Madera [facility] Course: Diagnosis on discharge: Severe generalized weakness Low-grade fever and mild leukocytosis on prior patient possible viral syndrome Recent urinary tract infection treated as outpatient Underlying history of hypertension Previous history of seizure disorder patient is not on any seizure medications at this time last seizure 15 years ago Previous history of brain surgery twice for AV malformation Underlying history of hypothyroidism maintained on Synthroid Hospital course: Malena Eisenberg, 74-year-old female presented to [facility] emergency room with severe weakness. Patient stated her symptoms started 2 weeks ago and has been worsening, she was seen by her primary care physician Dr. Madera and was diagnosed with a urinary tract infection and was given a course of oral antibiotic as outpatient, patient finished her antibiotics but stated that she was having severe generalized weakness. Otherwise no specific c omplaint. She has a history of remote brain surgery for IV malformation, she had seizure disorder in the past, but no new seizures, last seizure was more than 15 years ago and she is not on any seizure medication. She was evaluated in the emergency room vital examination on presentation revealed a temperature of 97.6 pulse 66 respirations 16 blood pressure 161/97 pulse ox 100% on room air Laboratory data revealed a white blood count of 10.05 hemoglobin 15.2 platelet count 127 BUN 28 creatinine 0.82 troponin 0.012 TSH 2.4 urine analysis revealed moderate leukocyte esterase and 11 white blood cells Testing in the emergency room revealed chest x-ray revealed some strandy atelectasis at the left base no acute process seen, EKG revealed normal sinus rhythm normal EKG, CT scan of the brain revealed no acute intracranial process, chronic periventricular white matter ischemic type changes, and stable left hemisphere intraparenchymal calcifications Patient was admitted to medical floor for further evaluation and treatment. On 09/01/2024 patient was seen and examined on the medical floor she is alert and oriented x 3 in no apparent distress she denies any symptoms at this time she stated that her weakness had significantly improved her vitals are within normal limits labs are within normal limits she was evaluated by neurology during this admission and cleared for discharge no further testing was recommended. Patient is feeling well she will be discharged to home today she will follow-up in our office within 1 week. Plan - Discharge Summary New Discharge Prescriptions: New Docusate [Colace] 100 mg PO BID 30 Days #60 cap Continue Multivitamins, Thera [Multivitamin (formulary)] 1 tab PO DAILY lisinopriL 40 mg PO DAILY Cholecalciferol [Vitamin D3 (125 Mcg = 5000 Iu)] 125 mcg PO DAILY diphenhydrAMINE [Benadryl] 25 mg PO DAILY Ferrous Sulfate [Iron (65 MG Elemental)] 325 mg PO DAILY Ketoconazole 2% Shampoo [Nizoral] 1 applic TOPICAL Q3D Vitamin D3/Vitamin K2 (Mk4) [Vitamin K2 Plus D3 Tablet] 1 tab PO DAILY diphenhydrAMINE [Benadryl] 25 mg PO HS PRN PRN Reason: sleep Levothyroxine Sodium [Synthroid] 75 mcg PO DAILY Rosuvastatin Calcium 5 mg PO DAILY Discharge Medication List Multivitamins, Thera [Multivitamin (formulary)] 1 tab PO DAILY 12/08/22 [History] lisinopriL 40 mg PO DAILY 04/20/23 [History] Cholecalciferol [Vitamin D3 (125 Mcg = 5000 Iu)] 125 mcg PO DAILY 08/30/24 [History] Ferrous Sulfate [Iron (65 MG Elemental)] 325 mg PO DAILY 08/30/24 [History] Ketoconazole 2% Shampoo [Nizoral] 1 applic TOPICAL Q3D 08/30/24 [History] Levothyroxine Sodium [Synthroid] 75 mcg PO DAILY 08/30/24 [History] Rosuvastatin Calcium 5 mg PO DAILY 08/30/24 [History] Vitamin D3/Vitamin K2 (Mk4) [Vitamin K2 Plus D3 Tablet] 1 tab PO DAILY 08/30/24 [History] diphenhydrAMINE [Benadryl] 25 mg PO DAILY 08/30/24 [History] diphenhydrAMINE [Benadryl] 25 mg PO HS PRN 08/30/24 [History] Docusate [Colace] 100 mg PO BID 30 Days #60 cap 09/01/24 [Rx] Follow up Appointment(s)/Referral(s): Josafat Madera MD [Primary Care Provider] - 1-2 days
== END 2024-09-01 14:49 | disposition home or self-care (01) ==
LOC: EC 11:17 → 1SOBS 15:24 → 5NMEDONC 09-01 07:15
PROVIDERS: ADMIT Internal Medicine; ATTEND Internal Medicine
DX: R53.1 Weakness (principal); D72.829 Elevated white blood cell count, unspecified; R50.9 Fever, unspecified; I10 Essential (primary) hypertension; G40.909 Epilepsy, unspecified, not intractable, without status epilepticus; E03.9 Hypothyroidism, unspecified; E11.9 Type 2 diabetes mellitus without complications; Z87.440 Personal history of urinary (tract) infections; Z79.82 Long term (current) use of aspirin; Z79.890 Hormone replacement therapy; Z79.899 Other long term (current) drug therapy; Z88.2 Allergy status to sulfonamides; Z88.5 Allergy status to narcotic agent
CPT/HCPCS: 96360; 96361 ×2; 99285; 36415; 93005; 93306; 97161; 85379; 80053 ×3; 82607; 82746; 83605; 84443; 84484 ×2; 85025 ×3; 85610; 85730; 81001; 87086; 83036; 71046; 70450; G0378 ×4; 82550